=== PATIENT | female | born 1940 | race Caucasian/White ===

== ENCOUNTER 2019-11-23 18:53 | Inpatient (IN) | payer MEDICARE, OTHER ==
[~2019-11-23] VITALS: Ht 152.4 cm; Wt 119.9 kg
[2019-11-23 19:03] VITALS: BP 142/56
[2019-11-23 19:47] LABS: BASO % 0.8 % (0.0-1.0); EOS # 0.1 10*3/uL (0.0-0.4); EOS % 1.8 % (1.0-4.0); HEMATOCRIT 38.9 % (37.0-47.0); LYMPH # 1.1 10*3/uL (1.3-4.4); LYMPH % 22.8 % (27.0-41.0); MEAN CORPUSCULAR HGB 31.8 pg (27.0-31.0); MEAN CORPUSCULAR HGB CONC 32.1 g/dl (33.0-37.0); MEAN PLATELET VOLUME 12.5 fl (9.6-12.3); MONO # 0.6 10*3/uL (0.1-1.0); MONO % 11.9 % (3.0-9.0); NEUT % 62.3 % (47.0-73.0); PLATELET COUNT AUTOMATED 143 10*3/uL (130-400); RED BLOOD COUNT 3.93 10*6/uL (4.10-5.10); RED CELL DISTRI WIDTH 13.4 % (0-14.5); WHITE BLOOD COUNT 4.9 10*3/uL (4.8-10.8)
[2019-11-23 20:00] LABS: ACT PARTIAL THROMBO TIME 23.7 SECONDS (20.0-32.1)
[2019-11-23 20:03] LABS: ALBUMIN 3.2 gm/dl (3.1-4.5); ALKALINE PHOSPHATASE 73 U/L (45-117); BUN 23 mg/dl (7-24); CHLORIDE 107 mmol/L (98-107); CREATININE 1.42 mg/dL (0.55-1.02); LIPASE 183 U/L (73-393); POTASSIUM 2.6 mmol/L (3.5-5.1); SGOT/AST 28 IU/L (3-35); SGPT/ALT 20 U/L (12-78); SODIUM 142 mmol/L (136-145); TOTAL PROTEIN 7.1 gm/dL (6.4-8.2); TROPONIN I < 0.015 ng/ml (<0.045)
--- NOTE | 2019-11-23 20:16 | NUR ---
PTS SON MASON GAVE HIS NUMBER OF
[2019-11-23 20:49] VITALS: BP 156/56
--- NOTE | 2019-11-23 21:30 | NUR ---
PT RESTING IN BED. STATES LAC WAS STARTING TO HURT TO POTASSIUM TITRATED DOWN TO 45
[2019-11-23 21:55] VITALS: BP 140/59
[2019-11-23 22:13] VITALS: BP 123/36
[2019-11-23 22:45] VITALS: BP 105/63
--- NOTE | 2019-11-23 22:45 | NUR ---
Time: 2244 A 79 year old FEMALE admitted to under services of DR. FAITH SAL,DIMA Conn Pt. arrived via stretcher from ER. Chief complaint: WOUND, CELLULITIS, AMBULATORY DYSFUNCTION, HYPOKALEMIA. ERYN MARSHALL
[2019-11-23] MEDS ORDERED: MONTELUKAST SOD10 MG PO (23:04)
[2019-11-23] MEDS ORDERED: SILVADENE,SSD C50 GM T (23:04)
[2019-11-23] MEDS ORDERED: SERTRALINE HYD100 MG PO (23:04)
[2019-11-23] MEDS ORDERED: FEROSUL325 MG PO (23:05)
[2019-11-23] MEDS ORDERED: MELOXICAM7.5 MG PO (23:05)
[2019-11-23] MEDS ORDERED: FUROSEMIDE40 MG PO (23:05)
[2019-11-23] MEDS ORDERED: LIPITOR10 MG PO (23:06)
[2019-11-23] MEDS ORDERED: ASPIRIN ADULT L81 M1 PO (23:08)
[2019-11-23] MEDS ORDERED: PROTONIX40 MG PO (23:08)
[2019-11-23] MEDS ORDERED: VENT7GM INH (23:09)
[2019-11-23] MEDS ORDERED: BREO ELLIPTA 11 EACH INH (23:10)
[2019-11-23] MEDS ORDERED: ALPHAGAN P 10 M10 M1 OPH (23:11)
[2019-11-23] MEDS ORDERED: MESALAMINE1.2 GM PO (23:11)
[2019-11-23] MEDS ORDERED: ZONISAMIDE100 MG PO (23:12)
[2019-11-23] MEDS ORDERED: GABAPENTIN100 M2 PO (23:13)
[2019-11-23] MEDS ORDERED: Transderm-Nitr0.2 MG TD (23:14)
[2019-11-23] MEDS ORDERED: DONEPEZIL HYDROC5 M1 PO (23:15)
[2019-11-23] MEDS ORDERED: NORCO 5-325 TA1 EACH PO (23:15)
--- NOTE | 2019-11-23 23:59 | NUR ---
NOTFIIED DR CUEVAS OF COMPLETED MED REC. ORDERS GIVEN TO CONTINUE HOME MEDS, PUT IN A NORMAL DIET, SOCIAL SERVICE CONSULT FOR INTERMEDIATE PLACEMENT. DR CUEVAS ALSO STATED TO HAVE WOUND CARE NURSE LOOK AT WOUND FOR RECCOMENDATIONS.
[2019-11-24] VITALS (7 sets, daily range): BP systolic 105–142; BP diastolic 37–63
--- NOTE | 2019-11-24 01:06 | NUR ---
Patient resting quietly with no c/o discomfort. Respirations easy and regular. Vital signs stable. No overt distress. ERYN MARSHALL
--- NOTE | 2019-11-24 04:27 | NUR ---
FLORENTINMARIELENADESTINY VU [id number] Please refer to the physician's history and physical for past medical history, comorbid conditions, and allergies. Diagnosis: WOUND CELLULITIS AMBULATORY DYSFUNCTION Jorden Score: 13,MODERATE RISK WOUND DESCRIPTIONS: Wound Number: 1 Location of the wound: right anterior mcdonald Type of wound: traumatic Thickness: Full Size: 4.7cm x 3.2cm x 0.6cm Tunneling: none Underminin.6cm from 1 o'clock - 4 o'clock Sinus Tract: none Presence of Exudate: Sanguineous Amount: Moderate Color: Red, Yellow, Brown Odor: None Periwound Skin Appearance: Erythema Wound edges: approximated Pain (associated with wound): tender at time of assessment How does patient state this happened? pt stated she fell out of the walk in shower 1 month ago Surface the patient is resting on: Position Pro SKIN PREVENTION RECOMMENDATION: 1. Pressure redistribution support surface as appropriate 2. Elevate heels 3. Remove boots/TEDS every shift and reapply 4. Head of bed 30 degrees as tolerated 5. Assess nutrition and hydration 6. Manage moisture 7. Avoid the use of containment devices while in bed 8. Use absorptive products on surfaces limit layers of linens on bed 9. Turn and reposition every 1-2 hours in bed and every 1 hour in chair as tolerated 10. Weight shifts every 15 minutes while up in chair 11. Offloading with pillows or device to keep heels elevated off bed 12. Monitor skin at least every shift 13. Inspect under medical devices twice a day WOUND TREATMENT RECOMMENDATIONS: Venous and arterial studies to ble's due to non-healing wound Wound culture to right anterior mcdonald Consult podiatry for possible debridement if studies allow Full thickness guidelines: Cleanse right anterior mcdonald with nss and apply sureprep around the wound therahoney to wound bed and cover with dsd daily and prn for soiling Heel raiser pro boots to bilateral feet while in bed
--- NOTE | 2019-11-24 05:41 | NUR ---
NOTIFIED DR NGUYEN OF CONSULT.
--- NOTE | 2019-11-24 07:10 | NUR ---
PATIENT'S HOME MED ZONISAMIDE CONTINUED. SPOKE WITH PHARMACY, IT IS A NON-FORMULARY MED AND THEY STATED SHE MAY HAVE TO HAVE IT BROUGHT IN FROM HOME. PASSED ALONG TO DAYSHIFT NURSE OLI Tao
--- NOTE | 2019-11-24 07:19 | NUR ---
SPOKE WITH DR CUEVAS REGARDING WOUND CARE RECOMMENDATIONS. HE STATED TO CONSULT PODIATRY SO THEY CAN SEE THE PATIENT. DR NGUYEN NOTIFIED OF CONSULT AND WOUND. HE STATED THEY WOULD BE IN TO SEE THE PATIENT.
--- NOTE | 2019-11-24 09:11 | NUR ---
DR CUEVAS AND DR MELO HERE TO SEE PT
--- NOTE | 2019-11-24 09:40 | NUR ---
SPOKE WITH PT SON MASON REGARDING PT GOING TO SURGERY TODAY. SURGERY QUESTIONAIRE COMPLETED BY SON VIA PHONE
--- NOTE | 2019-11-24 10:25 | NUR ---
POTASSIUM 2.6, AWAITING LAB DRAW OF STAT 2.6 WOUND PHOTOGRAPHED AND MEASURED PRE OP
--- NOTE | 2019-11-24 10:43 | NUR ---
WAITING ON POTASSIUM LAB RESULT
--- NOTE | 2019-11-24 12:09 | NUR ---
PT REAMINS IN SURGERY
--- NOTE | 2019-11-24 13:10 | NUR ---
PHYSICAL THERAPY Screen and eval received will follow thank you Rochelle Andrew PT
--- NOTE | 2019-11-24 13:48 | NUR ---
APIARIST-S in to talk to patient. Patient states lives at home with son and zsthmiby-em-spe. There are 0 steps in the home. Physician: Dr Pratt Pharmacy: [facility] Home health services: [facility] Patient's level of ADLs: MODERATE ASSIST Patient has working utilities: yes DME: walker and cane Follow-up physician's appointment after d/c: yes Does patient want to access PORTAL?: no Discharge plan Patient resides with her son and pyhvnnkj-dq-oup Kennedy and Radha Colbertgrazynarichard who are also pt's DPOAHC. Pt has resided with them since 10/07 and has been ambulatory with minimal assist for ADLs until a fall on 11/02/19. Pt has hospice services at home through [facility]. Pt currently has [place] health insurances but pt's family is trying to get this discontinued so that pt can apply for [place] Medicaid. Per pt's family to only SNF that they will consider for pt is [facility]. Discussed insurance as being the lonny for SNF placement in [place]. Pt's family is also prepared for pt to return home if unable to discharge to [facility]. . SAVITA ABAD
--- NOTE | 2019-11-24 13:50 | NUR ---
PHYSICAL THERAPY Orders received for evaluation and chart reviewed. Pt just had surgery of RLE with I&D of leg down to level of fascia with wound vac placement early this afternoon, spoke with nsg will follow in the AM for full assessment. Rochelle Andrew PT
--- NOTE | 2019-11-24 19:03 | NUR ---
dr geronimo answering service notified of consult
--- NOTE | 2019-11-24 21:06 | NUR ---
SPOKE WITH PATIENT'S SON WHO IS THE POA. HE STATED THE PATIENT IS A DNR-COMFORT CARE. HE STATED HE WOULD BRING IN THE DNR-CC PAPERWORK FOR US.
[2019-11-25] VITALS: BP 134/66
--- NOTE | 2019-11-25 00:25 | NUR ---
NORCO GIVEN PER PATIENT REQUEST FOR COMPLAINTS OF RIGHT HIP RATED 8/10 WILL ASSESS EFFECTIVENESS.
[2019-11-25 00:26] VITALS: BP 110/66
--- NOTE | 2019-11-25 01:20 | NUR ---
BRANDI HARLEY PER PATIENT. WILL CONTINUE TO MONITOR.
--- NOTE | 2019-11-25 03:43 | NUR ---
24 HR chart check completed.
[2019-11-25] MEDS ORDERED: ALPHAGAN P 15 M15 M1 OPH (03:47)
--- NOTE | 2019-11-25 04:15 | NUR ---
PATIENT'S WOUND VAC IN PLACE AND RUNNING APPROPRIATELY. 200, CONTINUOUS, LOW. NO PROBLEMS NOTED. 25 ML OUTPUT STILL. WILL CONTINUE TO MONITOR.
[2019-11-25 06:45] LABS: BASO # 0.1 10*3/uL (0.0-0.1); EOS # 0.2 10*3/uL (0.0-0.4); EOS % 2.9 % (1.0-4.0); HEMATOCRIT 36.9 % (37.0-47.0); LYMPH # 1.2 10*3/uL (1.3-4.4); MEAN CELL VOLUME 99.2 fl (81.0-99.0); MEAN CORPUSCULAR HGB 31.7 pg (27.0-31.0); MONO # 0.6 10*3/uL (0.1-1.0); MONO % 10.5 % (3.0-9.0); NEUT # 3.3 10*3/uL (2.3-7.9); NEUT % 63.4 % (47.0-73.0); PLATELET COUNT AUTOMATED 121 10*3/uL (130-400); RED BLOOD COUNT 3.72 10*6/uL (4.10-5.10); RED CELL DISTRI WIDTH 13.3 % (0-14.5); WHITE BLOOD COUNT 5.2 10*3/uL (4.8-10.8)
[2019-11-25 06:56] LABS: BUN 14 mg/dl (7-24); CHLORIDE 113 mmol/L (98-107); CREATININE 0.94 mg/dL (0.55-1.02); POTASSIUM 3.3 mmol/L (3.5-5.1); SODIUM 145 mmol/L (136-145)
--- NOTE | 2019-11-25 07:30 | NUR ---
PT RESTING IN BED. VOICES NO CONCERNS AT THIS TIME. RESPS EASY AND NON LABORED. NO S/S OF DISTRESS NOTED.VSS. WHITE BOARD UPDATED. WOUND VAC INTACT @ 200 LOW CONT WITH MINIMAL DRAINAGE. PT ABLE TO WIGGLE TOES AND IS WARM TO THE TOUCH. CALL LIGHT WITHIN REACH. BED ALARM ON.
[2019-11-25 08:00] VITALS: BP 124/50
--- NOTE | 2019-11-25 08:50 | NUR ---
Phoned pt's pcodixum-ze-qjo Radha and informed her that pt has Medicare and that pt's [place] MCR has been discontinued. Confirmed with Radha that a referral gerri be made to [facility].
--- NOTE | 2019-11-25 09:14 | NUR ---
Dr. Rebollar notified of wound VAC clarification needed with location and cleansing agent.
--- NOTE | 2019-11-25 10:09 | NUR ---
PT C/O 10/28 ACHING RIGHT LEG PAIN R/T SURGERY. MEDICATED PER ORDER. WILL MONITOR FOR RELEIF. VOICES NO OTHER CONCERNS AT THIS TIME. RESTING IN BED. RESPS EASY AND NON LABORED. CALL LIGHT WITHIN REACH.
--- NOTE | 2019-11-25 10:32 | NUR ---
Nutritional Support Services Note: Ht.5' Wt.265# IBW 90-110. Dx of cellulitis, ambulatory dysfunction, Alzheimers, dementia. Pt lives at home with family. Under Hospice Care. Staff to conitnue to encourage 100% of po intake. Regular diet as ordered. No other nutrition intervention needed at this time. Will follow as needed. Maria C Whitley Rdn Ld
--- NOTE | 2019-11-25 10:55 | NUR ---
Notified Lilly at [facility] that referral will be faxed as soon as all assessments are available.
--- NOTE | 2019-11-25 11:09 | NUR ---
NORCO EFFECTIVE PER PT
[2019-11-25 12:00] VITALS: BP 146/55
--- NOTE | 2019-11-25 13:15 | NUR ---
Physical Therapy evaluation completed on the fourth floor with full evaluation to follow. Recommend physical therapy per plan of care and SNF upon discharge. Thank you for this referral. Rochelle Andrew PT
--- NOTE | 2019-11-25 14:14 | NUR ---
PT C/O 5/10 ACHING FOOT PAIN R/T SURGERY. MEDICATED PER ORDER. WILL MONITOR FOR RELIEF. VOICES NO OTHER CONCERNS AT THIS TIME. CALL LIGHT WITHIN REACH
--- NOTE | 2019-11-25 15:14 | NUR ---
NORCO EFFECTIVE PER PT
--- NOTE | 2019-11-25 15:18 | NUR ---
Referral faxed to Lilly at [facility]. Submitted 30 Day Exempt through [facility].
--- NOTE | 2019-11-25 15:54 | NUR ---
PHYSICAL THERAPY Pt seen at the bedside still up in recliner chair starting to slide out due to c/o LBP. Pt "ready to get back in bed" STS from recliner chair Min assist x 2. Chair to Bed tranfers Amb 2-3 ft w FWW RLE WBAT and Min assist x 2 w verbal/tactile cues for safety/sequence. Sit to Supine Max x 2. Pt with short shuffling steps mild antalgic gait RLE pain 5/10. Positioned for comfort supine, LLE SCD and BLE off load boots in place call severino in reach and bed alarm engaged. Wound vac intact RLE no issues t/o session. Tolerated activity well with good participation. Nsg updated. Cont to follow per POC and cont to recomend SNF at discharge. Rochelle Andrew PT
[2019-11-25 16:00] VITALS: BP 103/44
--- NOTE | 2019-11-25 18:00 | NUR ---
PTS SON UPDATED ON PLAN OF CARE AND QUESTIONS ANSWERED. SON UPSET THAT OUR PHARMACY CAN NOT SUPPLY PTS SEIZURE MEDICATION. EXPLAINED THAT IT IS A NON FORMULARY MEDICATION THAT WE DO NOT HAVE HERE. SON STATES "ITS RIDICULOUS, BUT WHATEVER ILL BRING IT DOWN". INSTRUCTED ON WHERE AND HOW TO DROP OFF MEDICATION.
--- NOTE | 2019-11-25 18:29 | NUR ---
Patient resting quietly with no c/o discomfort. Respirations easy and regular. Vital signs stable. No overt distress. HISSOM,JUSTIN
[2019-11-25 20:00] VITALS: BP 122/53
--- NOTE | 2019-11-25 20:22 | NUR ---
WENT IN TO CHECK ON PATIENT. IV WAS PULLED OUT, NOT BY PATIENT BUT ON ACCIDENT. PATIENT WAS UNAWARE IT WAS OUT. WILL RESTART IV.
--- NOTE | 2019-11-25 20:30 | NUR ---
PATIENT'S FAMILY BROUGHT IN ZONISAMIDE. DR CUEVAS HAD ORDERED IT TO BE CONTINUED, HOWEVER IT WAS A NONFORMULARY MED AND PHARMACY SAID THEY COULD NOT SUBSTITUTE IT SO PATIENT'S SON DROPPED IT OFF TODAY. SENT DOWN TO PHARMACY TO BE LABELED.
--- NOTE | 2019-11-25 21:43 | NUR ---
PATIENT UP TO BEDSIDE COMMODE WITH 2 ASSIST. SHE DID WELL. VITAL SIGNS STABLE. REPOSITIONED BACK IN BED. WOUND VAC IN PLACE AND RUNNING AT ORDERED SETTINGS. SCD'S ON LEFT LEG. HEEL PROTECTORS ON BOTH FEET. CALL LIGHT WITHIN REACH. WILL CONTINUE TO MONITOR.
--- NOTE | 2019-11-25 22:20 | NUR ---
PATIENT'S FAMILY CALLED FOR AN UPDATE. NO FURTHER QUESTIONS.
[2019-11-26] VITALS: BP 117/48
--- NOTE | 2019-11-26 04:52 | NUR ---
24 HR chart check completed.
--- NOTE | 2019-11-26 07:30 | NUR ---
PT RESTING IN BED. VOICES NO CONCERNS AT THIS TIME. RESPS EASY AND NON LABORED. NO S/S OF DISTRESS NOTED. VSS. WHITE BOARD UPDATED. CALL LIGHT WITHIN REACH. BED ALARM ON. WOUND VAC INTACT @ 200 LOW CONT. TOTAL OUTPUT OF 50ML NOTED. PT TOES PINK AND WARM AND SHE IS ABLE TO WIGGLE THEM
[2019-11-26 08:00] VITALS: BP 109/69
--- NOTE | 2019-11-26 08:00 | NUR ---
PT ASSISTED TO BSC AND THEN TO CHAIR TO EAT BREAKFAST X2 ASSIST WITH A WALKER
--- NOTE | 2019-11-26 10:09 | NUR ---
FAMILY CALLED-PASSWORD PROVIDED. UPDATED ON PLAN OF CARE AND ALL QUESTIONS ANSWERED.
--- NOTE | 2019-11-26 10:24 | NUR ---
Shift chart check completed.
--- NOTE | 2019-11-26 10:25 | NUR ---
PHYSICAL THERAPY Patient seen this am 1;1 for therapy visit and was sitting up in bedside chair upon therapist arrival. Patient identified by name / and presented with R LE wound vac. Patient voices 8/10 R LE pain at rest and was pleasant this morning performing seated B LE therex, all planes, open chain, AROM, x 10 reps each. Patient also completed several sit to stand transfers from low chair surface, MIN A, tolerating approx 90 seconds static stand first trial, then 60 seconds during second trial, with use of wh walker standing support, SBA x 1. Patient reported increased c/o of R hip pain 10/10 following standing ex and returned to bedside chair. Patient remained in chair with call light, tray table, telephone and body alarm for safety. Will continue per POC as tolerated, total treatment time 16 minutes. Narinder Mcgarry, GOLD TOOLER
[2019-11-26 11:09] LABS: ACID FAST SPEC PROCESSING Tissue Grinding (.)
[2019-11-26 12:00] VITALS: BP 116/51
--- NOTE | 2019-11-26 15:24 | NUR ---
Continuing to work with [facility] for pt acceptance. Per Ashly of [facility], pt's insurance is still showing as [place] not Medicare. Ashly is working with pt's family to resolve this.
--- NOTE | 2019-11-26 15:27 | NUR ---
PHYSICAL THERAPY CO-SIGN I approve of the Physical Therapy notes written above. Rochelle Andrew PT
[2019-11-26 16:00] VITALS: BP 116/56
[2019-11-26 20:00] VITALS: BP 134/41
--- NOTE | 2019-11-26 21:00 | NUR ---
PM MEDICATIONS TAKEN WITHOUT INCIDENT. HEEL PROTECTORS APPLIED PER ORDER. BED IN LOWEST, LOCKED POSITION, CALL LIGHT IN REACH. BED ALARMED.
[2019-11-27] VITALS: BP 140/57
--- NOTE | 2019-11-27 05:24 | NUR ---
COBYCO PROVIDED PER C/O PAIN TO FEET. WILL MONITOR.
[2019-11-27 08:00] VITALS: BP 146/64
--- NOTE | 2019-11-27 09:00 | NUR ---
RESTING IN BED. DENIES C/O AT THIS TIME. WOUND VAC IN PLACE TO RT FOOT. PODIATRY TO BE IN WITHIN THE HOUR TO REDRESS FOOT. WILL CONTNUE TO MONITOR PT.
[2019-11-27 16:00] VITALS: BP 127/51
--- NOTE | 2019-11-27 17:18 | NUR ---
NUEROTIN 100MG GIVEN AT THIS TIME. ON A WOW AND GOT LOCKED IN IT.
[2019-11-27 20:00] VITALS: BP 123/58
[2019-11-28 06:46] LABS: BUN 18 mg/dl (7-24); CREATININE 1.07 mg/dL (0.55-1.02)
[2019-11-28 08:00] VITALS: BP 128/59
--- NOTE | 2019-11-28 08:48 | NUR ---
MEDICATED WITH PRNM NORCO PER ORDER AND REQUEST FOR C/O LEG PAIN RATED AT 8 OUT OF 10.
--- NOTE | 2019-11-28 11:30 | NUR ---
PODIATRY HAVE ROUNDED AND WRAPPED R LEG, TUBI M1A1 TANK CREWMAN TO LEFT LEG, HEEL PROTECTORS BILATERALLY.
[2019-11-28 16:00] VITALS: BP 116/51
--- NOTE | 2019-11-28 20:00 | NUR ---
AWAKE & ALERT RESTING IN BED WITH HOB SLIGHTLY ELEVATED. HEP LOCK INTACT TO LEFT ARM; SITE ASYMPTOMATIC. LUNGS CLEAR; SLIGHTLY DIMINISHED WITH NO COUGH NOTED. WOUND VAC INTACT. PT. VOICES NO C/O AT THIS TIME. CALL LIGHT WITHIN REACH.
--- NOTE | 2019-11-28 22:30 | NUR ---
TOOK MEDICATION WITHOUT DIFFICULTY. PT. VOICES NO C/O AT THIS TIME. CALL LIGHT WITHIN REACH.
[2019-11-29] VITALS: BP 118/53
--- NOTE | 2019-11-29 02:31 | NUR ---
Patient resting quietly with no c/o discomfort. Respirations easy and regular. Vital signs stable. No overt distress. ERYN MARSHALL
--- NOTE | 2019-11-29 07:50 | NUR ---
PHYSICAL THERAPY Patient was seen this am 1:1 for therapy visit and was resting supine in bed upon therapist arrival. Patients Nurse was present this morning as patient identified by name / . Patient presented with R LE wound vac and reports 3/10 pain around wound port. Patient transfers supine to sit EOB with MOD A, tolerating static EOB sit x several minutes to fully awaken. Patient instructed / performed seated B LE therex, all planes, 2 x 10 reps each to increase LE strength, then completed several sit to stand transfers, MIN A, use of wh walker standing support and requried v/c for proper hand placement to improve transfer safety. Patient also completed SPT to BSC, MIN A and ambulated 5'x 1, wh walker, MIN A to w/c for transport down for Ultrasound. Patient remained in w/c under [facility] staff Supervision and will continue per POC as tolerated, total treatment time 23 minutes. Narinder Mcgarry, DOCUMENT REVIEWER
[2019-11-29 08:00] VITALS: BP 131/79
--- NOTE | 2019-11-29 08:30 | NUR ---
ASSISTED TO BSC. BANDAGE REMOVED PER PODIATRY ORDER TO GO TO RADIOLOGY.
--- NOTE | 2019-11-29 09:14 | NUR ---
PATIENT IS BACK FROM TEST AND IS SITTING IN CHAIR.
--- NOTE | 2019-11-29 09:40 | NUR ---
Spoke with pt's tvlihtqt-[id number]-usa Radha who stated that she phoned [employer] and was told that pt is still current with that insurance. She was advised to enroll pt in a Medicare Part D program, which will disenroll pt from [place]. Discussed with Radha other discharge plan should pt be unable to discharge to [facility]. Radha stated that she does not want another NF and that pt would return home with hospice care. Explained to Radha that this editorial writer will get an update this AM about status of pt's wound vac and IV antibiotics in order to assist with discharge decision of SNF, home health, or hospice.
--- NOTE | 2019-11-29 10:04 | NUR ---
CALLED DR. CUEVAS OFFICE TO NOTIFY OF US RESULTS. DR. DONOVAN HERE AND AWARE.
--- NOTE | 2019-11-29 11:10 | NUR ---
Spoke to Dr. Pratt regarding whether patient would need IV antibiotics and a wound vac at home or home with hospice. She is not able to go to [facility] as she has a [place] Medicaid insurance and no [place] facility is going to be able to take her at this time. [id number]-nvb only wants [facility]. Spoke to Juan Pablo at [facility] regarding whether they would be able to provide the IV antibiotics and a wound vac. Awaiting return call from [facility]. monitor worker/media planner following.
--- NOTE | 2019-11-29 12:17 | NUR ---
DR. BOLES HAS ROUNDED. NEW ORDER FOR ELIQUIS GIVEN EARLIER BY DR. CUEVAS.
--- NOTE | 2019-11-29 13:21 | NUR ---
PATIENT'S DRESSING IS INTACT TO R LEG AGAIN PER PODAITRY.
--- NOTE | 2019-11-29 15:17 | NUR ---
Message left on sonAlfredo, answering machine regarding discharge planning. Awaiting return call. Spoke to Dr. Pratt who states family is not able to care for patient at home with the IV antibiotics and wound vac. [facility] states they are not in network with her [place] insurance. Awaiting return call.
[2019-11-29 16:00] VITALS: BP 124/47
--- NOTE | 2019-11-29 17:20 | NUR ---
DURAGESIC PATCH ON L ARM.
[2019-11-29 20:00] VITALS: BP 128/58
--- NOTE | 2019-11-29 22:00 | NUR ---
PATIENT VOICED NO COMPLAINTS. NO OVERT DISTRESS NOTED. WOUND VAC INTACT, NO ADDITIONAL DRAINAGE NOTED AT THIS TIME. CALL LIGHT WITHIN REACH
[2019-11-30] VITALS: BP 134/55
--- NOTE | 2019-11-30 03:03 | NUR ---
PATIENT RESTING IN BED WITH NO S/S OF DISTRESS. BED IN LOWEST POSITION, BED ALARM ON, CALL LIGHT IN REACH
--- NOTE | 2019-11-30 06:26 | NUR ---
DESTINY TRUONG [id number] Please refer to the physician's history and physical for past medical history, comorbid conditions, and allergies. Diagnosis: WOUND CELLULITIS AMBULATORY DYSFUNCTION Jorden Score: 13,MODERATE RISK WOUND DESCRIPTIONS: Wound Number: 1 Wound Vac intact to right lower extremity 200mmHg continous low intensity. No strikethrough drainage noted at time of assessment. Wound Number: 2 Location of the wound: left abdominal fold Type of wound: fungal Thickness: Partial Size: 1.2cm x 7.5cm x 0.1cm Tunneling: none Undermining: none Sinus Tract: none Presence of Exudate: Serosanguineous Amount: Light Color: Red Odor: None Periwound Skin Appearance: Normal Wound edges: approximated Pain (associated with wound): none at time of assessment How does patient state this happened? pt unable to state how this happened Surface the patient is resting on: Isoflex SKIN PREVENTION RECOMMENDATION: 1. Pressure redistribution support surface as appropriate 2. Elevate heels 3. Remove boots/TEDS every shift and reapply 4. Head of bed 30 degrees as tolerated 5. Assess nutrition and hydration 6. Manage moisture 7. Avoid the use of containment devices while in bed 8. Use absorptive products on surfaces limit layers of linens on bed 9. Turn and reposition every 1-2 hours in bed and every 1 hour in chair as tolerated 10. Weight shifts every 15 minutes while up in chair 11. Offloading with pillows or device to keep heels elevated off bed 12. Monitor skin at least every shift 13. Inspect under medical devices twice a day WOUND TREATMENT RECOMMENDATIONS: Cleanse left abdominal fold with soap and water pat area dry then apply nystatin powder every 8 hours.
[2019-11-30 08:00] VITALS: BP 124/94
--- NOTE | 2019-11-30 08:35 | NUR ---
PHYSICAL THERAPY Patient seen this am 1;1 for therapy visit and was supine in bed upon therapist arrival. Patient identified by name / and joined by patient attendant who was present during BEAMER OPERATOR session. Patient presented with R LE wound vac and reports 7/10 R LE pain that seems to come / go throughout the day. Patient transfers supine to sit EOB with MIN A and sit to stand MIN A, prior to ambulating 15'x 1, wh walker, CGA, around bed to bedside chair. Patient demonstrates very slow, cautious gait pattern, decreased stride / heel strike and reports no change in pain c/o. Following brief seated rest break secondary to increased fatigue, patient performed seated B LE therex, all planes, x 15 reps each without c/o to increase LE strength. Patient is still WBAT on R LE and remained in bedside chair with call light, tray table, telephone and body alarm for safety. Will continue per POC as tolerated, total treatment time 23 minutes. Narinder Mcgarry, BEAMER OPERATOR
--- NOTE | 2019-11-30 08:38 | NUR ---
Spoke to ghmrcylp-[id number]-sje, Radha, regarding discharge planning. She states patient has Medicare A&B and the [place] plan is for drug coverage which will start December 19. She is calling this morning to see about getting her enrolled in [place] Medicaid. After she speaks to [place] Medicaid she will return call to . Discussed [facility] in [place] as Radha stated she didn't want the patient in any other [place] facilities and as [facility] due to insurance coverage. washtub worker, Dr. Soriano, and Dr. Pratt notified.
--- NOTE | 2019-11-30 08:53 | NUR ---
CATHLEEN faxed new patient referral to [facility] in [place] on this date. Pending acceptance.
--- NOTE | 2019-11-30 09:11 | NUR ---
Riley Denied client due to not having had a Covid Test completed.
--- NOTE | 2019-11-30 11:47 | NUR ---
Spoke to Dr. Pratt regarding [facility] requiring a COVID test prior to accepting patient. New orders received.
[2019-11-30 12:00] VITALS: BP 109/49
--- NOTE | 2019-11-30 15:00 | NUR ---
CATHLEEN faxed new patient referal to [facility] on this date. Pending acceptance.
[2019-11-30 16:00] VITALS: BP 135/56
[2019-11-30 20:00] VITALS: BP 128/61
--- NOTE | 2019-11-30 20:20 | NUR ---
PATIENT RESTING IN BED WITH NO NEEDS MADE. BED IN LOWEST POSITION, CALL LIGHT IN REACH
[2019-12-01] VITALS: BP 133/59
--- NOTE | 2019-12-01 04:16 | NUR ---
PATIENT RESTING IN BED WITH NO S/S OF DISTRESS. BED IN LOWEST POSITION, CALL LIGHT IN REACH
--- NOTE | 2019-12-01 07:46 | NUR ---
PHYSICAL THERAPY Screen received for Physical Therapy pt has already been evaluated and is on caseload thank you. Rochelle Andrew PT
--- NOTE | 2019-12-01 07:55 | NUR ---
CATHLEEN recieved word from [facility] that they are not in network with [facility] and patients primary insurance is through [facility]. They cannot take patient for placement.
[2019-12-01 08:00] VITALS: BP 128/50
--- NOTE | 2019-12-01 08:15 | NUR ---
PHYSICAL THERAPY Patient seen this am 1:1 for therapy visit and was "slouched" supine in bed upon therapist arrival. Patient identified by name / as patient attendant was present requesting help with repositioning patient. However, per therapist request, agreed to transfer to bedside chair as breakfast tray arrived. Patient presented with R LE wound vac and transfers supine to sit EOB with MOD A x 1. Patient able to complete seated B LE therex, all planes, x 10 reps each prior to performing sit to stand transfer, MIN A x 1 with use of wh walker standing support. Patient completed SPT to bedside chair, CGA, requiring v/c for safe step sequence and proper hand placement prior to sitting down. Patient remained in bedside chair with call light, tray table, telephone and body alarm for safety. Will continue per POC as tolerated, total treatment time 15 minutes. Narinder Mcgarry, OFFICE HELPER
--- NOTE | 2019-12-01 08:35 | NUR ---
Spoke to Dr. Soriano regarding discharge planning. She is awaiting Dr. Vega to round but thinks patient may be able to go home on po antibiotics. Spoke to Dr. Rebollar who will make rounds with the attending about 10am to see if the patient needs to be discharged to home with a wound vac. Spoke to Lucy at [facility] regarding if they take [place] insurance and they do not but Lucy will look to see if she can find a company that does and return call.
--- NOTE | 2019-12-01 09:19 | NUR ---
Received call from Lucy at [facility]. They are not able to see patient due to her insurance of [place]. They are not contracted with them. She suggested to call the number of the back of her [place] insurance card to see what home health insurance companies are within her network.
--- NOTE | 2019-12-01 10:45 | NUR ---
Spoke to Surinder at [place] regarding home health companies within the their network. There are 2 [facility] and [facility]. Spoke to Isabel at [facility] and Jazmyn at [facility], they both state they do not come to [place]. Dr. Rebollar notified who states they will place the vac here in the hospital and then patient is to follow at the office. Faxed VAC therapy insurance authorization form to [facility]. Awaiting response.
--- NOTE | 2019-12-01 11:36 | NUR ---
Spoke to nuqdzxhk-[id number], Radha, regarding patient can be discharged on po antibiotics. She is not understanding how from 2 days ago she needed IV antibiotics to now needing po antibiotics. Asked Dr. Soriano to call patient to help answer patient's questions. Explained the patient would have the wound vac placed here at the hospital and would need to follow up at the physician's office. She verbalized an understanding. Asked Dr. Rebollar how often the patient would need to follow up at the physician's office, waiting for a response. Azzdsifb-[id number] is concerned that her who was working night turn is now working day light and he is the one that gets her in and out of the house. She states she doesn't think she would be able to get her to her doctor appointments as she doesn't drive and doesn't think she will be able to get her into a car. She states she is willing to private pay for a SNF. Discussed it costing approximately $3000 for 3 weeks and she states she is not able to afford that option either. appointments as she doesn't drive and is not sure she can get
--- NOTE | 2019-12-01 11:56 | NUR ---
Dr. Soriano spoke to patient regarding antibiotics. Patient has concerns regarding the wound vac. Dr. Soriano will reach out to podiatry to have them talk to family.
[2019-12-01 16:00] VITALS: BP 109/51
[2019-12-02] VITALS: BP 141/81
--- NOTE | 2019-12-02 07:28 | NUR ---
Notified Dr. Rebollar of [id number]'s request to speak to podiatry regarding office visits and how often. Awaiting response.
--- NOTE | 2019-12-02 07:48 | NUR ---
24 HR chart check completed.
[2019-12-02 08:00] VITALS: BP 125/58
--- NOTE | 2019-12-02 08:30 | NUR ---
PT IS CURRENTLY SITTING UP IN THE BED, EATING BREAKFAST. PT HAD NO COMPLAINTS AT THIS TIME AND DENIED ANY PAIN. WOUND VAC WAS C/D/I. IT WAS CONTINUOUSLY RUNNING PER ORDER.
--- NOTE | 2019-12-02 08:57 | NUR ---
Received voicemail from Kai at [facility] regarding where delivery of [facility] wound vac would be. Returned call and left message for wound vac to be delivered to the hospital. Awaiting return call.
--- NOTE | 2019-12-02 09:51 | NUR ---
Discussed discharge planning with Dr. Pratt. Awaiting [facility] wound vac delivery. Patient to be discharged today as long as wound vac is delivered. Discussed antibiotics with Dr. Soriano who states patient will need Keflex for [address] Rebollar who states he spoke to the [id number]-sco yesterday regarding follow-up with podiatry.
[2019-12-02] MEDS ORDERED: KEFLEX 500 MG E2 CAP PO (10:16)
[2019-12-02] MEDS ORDERED: Duragesic 50 M50 MCG T (10:16)
[2019-12-02] MEDS ORDERED: ELIQUIS5 M1 PO (10:16)
--- NOTE | 2019-12-02 13:47 | NUR ---
CALLED PT'S SON MASON AND MASON'S ANSWERED THE PHONE. I NOTIFIED HER THAT SHE WAS COMPLETELY OUT OF HER MEDICATION ZONISAMIDE. I ALSO INFORMED HER THAT WE WERE STILL WAITING ON THE WOUND VAC TO COME. SHE SAID THAT IF IT COMES AND SHE CAN LEAVE SHE WOULD NOT HAVE A RIDE UNTIL AFTER [id number]. SHE ALSO HAD SAID THAT IF THE WOUND VAC DOES NOT COME TONIGHT SHE WOULD RUN UP MORE OF HER MEDICATION. SHE SAID SHE WAS GOING TO BE CALLING THE PATIENT'S PHARMACY AND WORKING ON GETTING THE PERSCRIPTION FILLED.
--- NOTE | 2019-12-02 13:52 | NUR ---
Spoke to RAMIRO at [facility] regarding wound vac status. She states the wound vac is still in a pending status but has been assigned. She states the hospital will receive a call to determine delivery time after all of the documentation has been reviewed.
[2019-12-02 16:00] VITALS: BP 114/50
--- NOTE | 2019-12-02 17:00 | NUR ---
PA'S WERE CLEANING PATIENT UP AND NOTICED A TEAR IN THE INTERGLUTEAL FOLD OF THE PATIENT. NO DRAINAGE WAS PRESENT AND IT WAS NOT PAINFUL FOR THE PATIENT.
--- NOTE | 2019-12-02 18:07 | NUR ---
SPOKE WITH [facility], THEY SAID THEY NO LONGER HAD A MARKETING OPERATIONS INTERN THAT COULD BRING THE WOUND VAC TONIGHT. I TOLD THEM THAT THE PATIENT WAS DISCHARGED AND SHE WAS JUST WAITING ON THE THE WOUND VAC. THEY SAID THERE FIRST MARKETING OPERATIONS INTERN STARTS AT 8AM AND THAT THEY WOULD BE ABLE TO GET IT HERE IN THE MORNING. DR. DONOVAN WAS CALLED AND NOTIFIED.
--- NOTE | 2019-12-02 18:17 | NUR ---
CALLED AND NOTIFIED THE FAMILY THAT THE PATIENTS WOUND VAC WOULD NOT BE ABLE TO ARRIVE AT THE HOSPITAL UNTIL TOMORROW MORNING. PT'S DAUGHTER IN LAW ALSO STATED THAT SHE WAS ABLE TO FILL PT'S PRESCRIPTION AND HER WOULD BRING IN THE MEDICATION.
--- NOTE | 2019-12-02 19:00 | NUR ---
ASSUMED CARE FOR THIS PT AT THIS TIME. PT AWAKE IN BED LOOKING OUT WINDOW. WOUND ON RLE AND FUNCTIONING W/OUT DIFF, SETTINGS 200MMHG LOW CONTNUOUS. PT C/O RLE PAIN. FENTANYL PATCH TO LT SHOULDER INTACT. WILL CONTINUE TO MONITOR. BED IN LOW POSITION W/WHEELS LOCKED AND ALARM ON. CALL LIGHT IN REACH.
[2019-12-03] VITALS: BP 126/47
--- NOTE | 2019-12-03 05:59 | NUR ---
DESTINY TRUONG [id number] Please refer to the physician's history and physical for past medical history, comorbid conditions, and allergies. Diagnosis: WOUND CELLULITIS AMBULATORY DYSFUNCTION Jorden Score: 16,AT RISK WOUND DESCRIPTIONS: Wound Number: 3 Location of the wound: intergluteal fold Type of wound: IAD Thickness: Partial Size: 2.0cm x 0.2cm x 0.1cm Tunneling: none Undermining: none Sinus Tract: none Presence of Exudate: Serous Amount: Light Color: Red Odor: None Periwound Skin Appearance: Normal Wound edges: approximated Pain (associated with wound): none at time of assessment How does patient state this happened? pt unable to state how this happened Surface the patient is resting on: Position Pro SKIN PREVENTION RECOMMENDATION: 1. Pressure redistribution support surface as appropriate 2. Elevate heels 3. Remove boots/TEDS every shift and reapply 4. Head of bed 30 degrees as tolerated 5. Assess nutrition and hydration 6. Manage moisture 7. Avoid the use of containment devices while in bed 8. Use absorptive products on surfaces limit layers of linens on bed 9. Turn and reposition every 1-2 hours in bed and every 1 hour in chair as tolerated 10. Weight shifts every 15 minutes while up in chair 11. Offloading with pillows or device to keep heels elevated off bed 12. Monitor skin at least every shift 13. Inspect under medical devices twice a day WOUND TREATMENT RECOMMENDATIONS: Cleanse intergluteal fold with soap and water and apply calazime every shift and prn for soiling. Wheelchair cushion when oob.
[2019-12-03 08:00] VITALS: BP 128/50
--- NOTE | 2019-12-03 09:19 | NUR ---
PREVIOUS FENTANYL PATCH WASTED WITH LILA VANCE RN.
--- NOTE | 2019-12-03 11:58 | NUR ---
RECEIVED A CALL FROM [facility] THEY ARE OUT FRONT WITH WOUND VAC. WENT DOWN TO PICK IT UP. WOUND VAC IN ROOM. DEDRICK CONNOR SAYS SHE WILL CALL DR DONOVAN AND LET HIM KNOW WOUND VAC HAS ARRIVED.
--- NOTE | 2019-12-03 13:00 | NUR ---
PTS [id number] STATES THAT SHE IS UNBLE TO GET AHOLD OF HER TO HOME SCHOOL COORDINATOR THE PATIENT. HE IS AT WORK AND IS NOT ANSWERING THE PHONE. SHE WILL CALL WITH A TIME WHEN HE CALLS BACK.
--- NOTE | 2019-12-03 13:39 | NUR ---
PHYSICAL THERAPY Screen received pt has already been evaluated and is on caseload thank you Rochelle Andrew PT
--- NOTE | 2019-12-03 15:12 | NUR ---
PTS DAUGHTER IN LAW ONFORMED OF FOLLOW UP APPT WITH [facility] ON Friday AT 10 AM.
--- NOTE | 2019-12-03 15:26 | NUR ---
PHYSICAL THERAPY CO-SIGN I approve of the Physical Therapy notes written above. Rochelle Andrew PT
--- NOTE | 2019-12-03 16:46 | NUR ---
HEPLOCK REMOVED. PT DISCHARGED AT THIS TIME TO HOME VIA WHEELCHAIR. WOUND VAC INTACT. SUPPLIES TAKEN WITH PATIENT TO THE ER. PRESCRIPTIONS AND PACKET WELL HOME MEDS SENT HOME WITH THE PATIENT.
--- NOTE | 2019-12-03 17:00 | NUR ---
THIS NURSE CALLED TO ER TO TROUBLESHOOT BEEPING WOUND VAC. I TURNED THE WOUND VAC TO CONTINOUS VAC AND IT WAS THEN FUNCTIONING PROPERLY. SCREEN LOCKED.
== END 2019-12-03 16:48 | disposition home or self-care (01) | DRG 570 ==
LOC: ED 18:53 → 4E 21:37 → EDHOLD 21:37 → 4E 22:04
PROVIDERS: Nurse Practitioner Family; Podiatrist Foot & Ankle Surgery; ADMIT Internal Medicine
PROC: 0JBQ0ZZ Excision of Right Foot Subcutaneous Tissue and Fascia, Open Approach (ICD-10-PCS; principal; 2019-11-24)
DX: L03.115 Cellulitis of right lower limb (principal); G93.41 Metabolic encephalopathy; F33.0 Major depressive disorder, recurrent, mild; Z68.43 Body mass index [BMI] 50.0-59.9, adult; I82.412 Acute embolism and thrombosis of left femoral vein; S91.001A Unspecified open wound, right ankle, initial encounter; L02.415 Cutaneous abscess of right lower limb; R62.7 Adult failure to thrive; K21.9 Gastro-esophageal reflux disease without esophagitis; E87.6 Hypokalemia; M16.11 Unilateral primary osteoarthritis, right hip; G89.29 Other chronic pain; D50.9 Iron deficiency anemia, unspecified; G30.9 Alzheimer's disease, unspecified; F02.80 Dementia in other diseases classified elsewhere, unspecified severity, without behavioral disturbance, psychotic disturbance, mood disturbance, and anxiety; E66.01 Morbid (severe) obesity due to excess calories; G40.909 Epilepsy, unspecified, not intractable, without status epilepticus; I25.10 Atherosclerotic heart disease of native coronary artery without angina pectoris; I25.2 Old myocardial infarction; K21.0 Gastro-esophageal reflux disease with esophagitis; E78.2 Mixed hyperlipidemia; K52.89 Other specified noninfective gastroenteritis and colitis; J45.40 Moderate persistent asthma, uncomplicated; B95.61 Methicillin susceptible Staphylococcus aureus infection as the cause of diseases classified elsewhere; I73.9 Peripheral vascular disease, unspecified; X58.XXXA Exposure to other specified factors, initial encounter; Y93.89 Activity, other specified; Y92.89 Other specified places as the place of occurrence of the external cause; Y99.8 Other external cause status; Z79.899 Other long term (current) drug therapy; Z79.82 Long term (current) use of aspirin

== ENCOUNTER 2019-12-10 23:35 | Inpatient (IN) | payer OTHER ==
[~2019-12-10] VITALS: Ht 154.9 cm; Wt 118.5 kg
[2019-12-10 03:15] VITALS: BP 120/51
[~2019-12-10 23:35] MED LIST: ALPHAGAN P 10 M10 M1 OPH; ALPHAGAN P 15 M15 M1 OPH; ASPIRIN ADULT L81 M1 PO; BREO ELLIPTA 11 EACH INH; DONEPEZIL HYDROC5 M1 PO; Duragesic 50 M50 MCG T; ELIQUIS5 M1 PO; FEROSUL325 MG PO; FUROSEMIDE40 MG PO; GABAPENTIN100 M2 PO; KEFLEX 500 MG E2 CAP PO; LIPITOR10 MG PO; MELOXICAM7.5 MG PO; MESALAMINE1.2 GM PO; MONTELUKAST SOD10 MG PO; NORCO 5-325 TA1 EACH PO; PROTONIX40 MG PO; SERTRALINE HYD100 MG PO; SILVADENE,SSD C50 GM T; Transderm-Nitr0.2 MG TD; VENT7GM INH; ZONISAMIDE100 MG PO
[2019-12-10 23:52] VITALS: BP 120/48
[2019-12-11 00:02] LABS: BASO # 0.1 10*3/uL (0.0-0.1); BASO % 1.2 % (0.0-1.0); EOS # 0.2 10*3/uL (0.0-0.4); EOS % 3.5 % (1.0-4.0); HEMATOCRIT 35.9 % (37.0-47.0); LYMPH # 1.7 10*3/uL (1.3-4.4); LYMPH % 34.6 % (27.0-41.0); MEAN CELL VOLUME 99.4 fl (81.0-99.0); MEAN CORPUSCULAR HGB 31.9 pg (27.0-31.0); MEAN PLATELET VOLUME 12.1 fl (9.6-12.3); MONO # 0.4 10*3/uL (0.1-1.0); MONO % 8.9 % (3.0-9.0); NEUT # 2.5 10*3/uL (2.3-7.9); NEUT % 51.6 % (47.0-73.0); PLATELET COUNT AUTOMATED 153 10*3/uL (130-400); RED BLOOD COUNT 3.61 10*6/uL (4.10-5.10); RED CELL DISTRI WIDTH 13.4 % (0-14.5); WHITE BLOOD COUNT 4.9 10*3/uL (4.8-10.8)
[2019-12-11 00:20] LABS: ACT PARTIAL THROMBO TIME 26.5 SECONDS (20.0-32.1); INTERNATIONAL NORM RATIO 1.1 (2.0-3.5)
[2019-12-11 00:23] LABS: ALBUMIN 3.2 gm/dl (3.1-4.5); ALKALINE PHOSPHATASE 70 U/L (45-117); BUN 23 mg/dl (7-24); CHLORIDE 107 mmol/L (98-107); POTASSIUM 3.3 mmol/L (3.5-5.1); SGOT/AST 25 IU/L (3-35); SGPT/ALT 16 U/L (12-78); SODIUM 142 mmol/L (136-145); TOTAL PROTEIN 6.6 gm/dL (6.4-8.2)
[2019-12-11 00:30] LABS: TROPONIN I < 0.015 ng/ml (<0.045)
[2019-12-11 00:41] VITALS: BP 116/49
--- NOTE | 2019-12-11 02:18 | NUR ---
PATIENT REFUSES PHOTOS FOR WOUNDS
[2019-12-11 02:19] VITALS: BP 104/57
--- NOTE | 2019-12-11 02:20 | NUR ---
SPOKE WITH SON WHO STATES HER WOUND VAC IS NOT TO BE REMOVED UNLESS ITS BY THE WOUND DOCTOR.
--- NOTE | 2019-12-11 03:15 | NUR ---
A 79, admitted to , under the services of CHU Andersen MD with a diagnosis of JESSICA; CHF; STASIS OF RIGHT LOWER EXTREMITY. Chief complaint is C/O SYNCOPE; SOB AT HOME PER PT.. Patient arrived via stretcher from ER. Monitor applied. Initial assessment completed. Vital signs taken and recorded. CHU ANDERSEN MD notified of admission to the unit. Orders received. See assessment for past medical history, medications and allergies. Patient and/or family oriented to unit. [facility] visitation policy reviewed. Clothing/patient valuable form completed. AG TUTTLE
[2019-12-11 08:00] VITALS: BP 131/49
--- NOTE | 2019-12-11 09:02 | NUR ---
AM MEDS TAKEN WITH EASE. PT ALERT AND ORIENTED WITH PERIODS OF CONFUSION. RESPIRATIONS EASY AND UNLABORED ON 1L NC. DRESSING TO RIGHT LOWER EXTREMITY IN TACT. WILL CONTINUE TO MONITOR. HOB ELEVATED. SAFETY MEASURES IN PLACE. CALL LIGHT IN REACH.
--- NOTE | 2019-12-11 10:41 | NUR ---
DR DONOVAN AT BEDSIDE, APPLYING WOUND VAC TO RLE.
--- NOTE | 2019-12-11 11:00 | NUR ---
DR BRIZUELA CALLS AND STATES THAT PATIENT TAKES ZONISAMIDE 100 MG TID FOR SEIZURE DISORDER. OUR PHARMACY DOES NOT CARRY MEDICATION. PHYSICIAN STATES THAT EITHER OUR PHARMACY CAN DO A PHARMACOLOGIC INTERCHANGE OR FAMILY CAN BRING MEDS FROM HOME TO BE USED. PHARMACY NOTIFIED AND STATES THAT THEY ARE UNABLE TO REPLACE MEDICATION. FAMILY NOTIFIED AND STATES THAT THEY WILL BRING MEDICATION IN.
[2019-12-11 12:00] VITALS: BP 126/42
--- NOTE | 2019-12-11 14:00 | NUR ---
FAMILY BRINGS IN HOME MEDICATION FOR USE. PHARMACY LABELS FOR USE. MEDICATION IN [place].
[2019-12-11 16:00] VITALS: BP 106/66
--- NOTE | 2019-12-11 16:00 | NUR ---
PT SITTING UP IN BED, EATING DINNER. NO S/S OF DISTRESS NOTED. WOUND VAC IN PLACE TO RIGHT LOWER EXTREMITY. RESPIRATIONS EASY AND UNLABORED ON 2L NC. WILL CONTINUE TO MONITOR. CALL LIGHT IN REACH.
[2019-12-11 19:59] VITALS: BP 123/49
--- NOTE | 2019-12-11 20:10 | NUR ---
SITTING UP IN BED WATCHING T.V. ATE 100% OF DINNER. VOICES NO C/O AT THIS TIME. BED ALARM INTACT; CALL LIGHT WITHIN REACH.
--- NOTE | 2019-12-11 22:00 | NUR ---
TOOK PO MEDICATION WITHOUT DIFFICULTY. VOICES NO C/O AT THIS TIME. 02 REMAINS INTACT. WOUND VAC INTACT TO RIGHT LOWER LEG. BED ALARM ON; CALL LIGHT WITHIN REACH.
--- NOTE | 2019-12-12 | NUR ---
RESTING IN BED WITH EYES CLOSED. 02 REMAINS INTACT. RESPIRATIONS EASY & UNLABORED. BED ALARM ON; CALL LIGHT WITHIN REACH.
[2019-12-12 00:27] VITALS: BP 125/52
[2019-12-12 06:39] LABS: BASO # 0.1 10*3/uL (0.0-0.1); BASO % 1.2 % (0.0-1.0); EOS # 0.3 10*3/uL (0.0-0.4); EOS % 6.1 % (1.0-4.0); HEMATOCRIT 35.3 % (37.0-47.0); LYMPH % 19.3 % (27.0-41.0); MEAN CELL VOLUME 101.1 fl (81.0-99.0); MEAN CORPUSCULAR HGB 31.8 pg (27.0-31.0); MEAN CORPUSCULAR HGB CONC 31.4 g/dl (33.0-37.0); MEAN PLATELET VOLUME 12.3 fl (9.6-12.3); MONO # 0.5 10*3/uL (0.1-1.0); MONO % 9.1 % (3.0-9.0); NEUT # 3.2 10*3/uL (2.3-7.9); NEUT % 64.1 % (47.0-73.0); PLATELET COUNT AUTOMATED 141 10*3/uL (130-400); RED BLOOD COUNT 3.49 10*6/uL (4.10-5.10); RED CELL DISTRI WIDTH 13.5 % (0-14.5); WHITE BLOOD COUNT 4.9 10*3/uL (4.8-10.8)
[2019-12-12 06:52] LABS: CREATININE 1.3 mg/dL (0.55-1.02); POTASSIUM 3.1 mmol/L (3.5-5.1)
--- NOTE | 2019-12-12 07:30 | NUR ---
TOOK OVER CARE OF PT. PT RESTING IN BED. EYES CLOSED. RESPIRATIONS EASY AND UNLABORED ON 1L NC. HOB ELEVATED. WOUND VAC IN PLACE. SAFETY MEASUARES IN PLACE. CALL LIGHT IN REACH.
[2019-12-12 08:00] VITALS: BP 147/56
[2019-12-12 12:00] VITALS: BP 122/43
--- NOTE | 2019-12-12 15:48 | NUR ---
PT ON R/A SAT 97%, RN AWARE.
[2019-12-12 16:00] VITALS: BP 138/53
--- NOTE | 2019-12-12 16:00 | NUR ---
PT RESTING IN BED. ALERT AND ORIENTED AT THIS TIME. NO COMPLAINTS VOICED. RESPIRATIONS EASY AND UNLABORED.NO DISTRESS NOTED. CALL LIGHT IN REACH.
[2019-12-12 19:55] VITALS: BP 142/66
--- NOTE | 2019-12-12 20:06 | NUR ---
ORDERS RECEIVED FROM DR BRIZUELA FOR NYSTATIN POWDER TO BE APPLIED QSHIFT TO ABDOMINAL FOLDS.
--- NOTE | 2019-12-12 22:03 | NUR ---
BRANDI REQUESTED AND GIVEN PER PT REQUEST FOR BLE LEG PAIN 8/10 ON PAIN SCALE. PATIENT ABLE TO WIGGLE TOES.
--- NOTE | 2019-12-12 22:48 | NUR ---
NORCO APPEARS EFFECTIVE; PATIENT SLEEPING. EASY REG RESPS ON RA.
[2019-12-13] VITALS: BP 143/52
--- NOTE | 2019-12-13 03:01 | NUR ---
PATIENT CALLS OUT TO USE RR. PATIENT IS FLUSHED APPEARING AND WARM, VITALS WNL AND BLOOD SUGAR CHECK 101. PATIENT IS MORE SLOW TO RESPOND THAN PREVIOUS. ORIENTED TO SELF & LOCATION BUT MAKES IRRELEVANT COMMENTS. SPEECH SEEMING TO BE RETURNED TO BASELINE. ASSISTED TO BSC BY PA'S, PT VERY WEAK & REPOSITIONED IN BED. PATIENT VERBALIZES NO FURTHER NEEDS. WILL CONT TO MONITOR.
--- NOTE | 2019-12-13 05:45 | NUR ---
AM MEDS TAKEN WITH A SIP OF WATER. WOUND VAC REMAINS PATENT. PATIENT VOICES NO NEEDS. CALL LIGHT IN REACH.
[2019-12-13 08:00] VITALS: BP 144/63
[2019-12-13 12:00] VITALS: BP 140/63
[2019-12-13 16:00] VITALS: BP 126/59
[2019-12-13 20:00] VITALS: BP 140/57
[2019-12-14] VITALS: BP 133/59
[2019-12-14 08:00] VITALS: BP 140/62
--- NOTE | 2019-12-14 08:00 | NUR ---
Skip Operator spoke to patient's [id number]-[id number]. Patient states lives at home with son and [id number]-md-qws. There are 0 steps in the home. Physician: Dr. Randal Pratt Pharmacy: [facility] Home health services: none Patient's level of ADLs: MODERATE ASSIST Patient has working utilities: yes DME: walker, cane Follow-up physician's appointment after d/c: she prefers to make her own follow up appt after discharge Does patient want to access PORTAL?: no Discharge plan discussed with patient's [id number]-mq-far. She lives at home with her son and [id number]-[id number]. Discussed short term SNF and she would like to see about [facility]. Explained patient's insurance is still [place] and that [facility] may not take patient. Patient's Medicare starts December 19. She needs moderate assistance with her ADLs and ambulates with a walker. long term care social worker notified. Discharge plan undecided at this time. No [place] home health company will take patient. [facility] home health companies will not come to [place]. CINDY OWEN
--- NOTE | 2019-12-14 08:30 | NUR ---
Medicated with norco per prn order for complaints of pain to rt leg and rt hip. States pain is moderate.
--- NOTE | 2019-12-14 08:35 | NUR ---
DESTINY TRUONG [id number] Please refer to the physician's history and physical for past medical history, comorbid conditions, and allergies. Diagnosis: JESSICA CHF STASIS ULCER OF RIGHT LOWER EXTREMITY Jorden Score: 17,AT RISK WOUND DESCRIPTIONS: This nurse along with with Lisa Garcia RN evaluated patient for skin impairments. Wound Number: 1 Location of the wound: right anterior mcdonald wound vac intact at 200mmHg low continous. No strikethrough drainage noted at time of assessment. Podiatry to manage wound vac per orders Wound Number: 2 Location of the wound: left abdominal fold Kelly and blanchable at time of assessment. No open areas noted at time of assessment. Wound Number: 3 Location of the wound: intergluteal fold scar tissue noted at time of assessment. No drainage noted at time of assessment. Wound Number: 4 Location of the wound: left anterior ankle Thickness: Full Size: 0.6cm x 0.7cm x 0.1cm Tunneling: none Undermining: none Sinus Tract: none Presence of Exudate: none Amount: none Color: Red Odor: None Periwound Skin Appearance: Normal Wound edges: approximated Pain (associated with wound): none at time of assessment How does patient state this happened? pt unsure how this happened Surface the patient is resting on: Isoflex SKIN PREVENTION RECOMMENDATION: 1. Pressure redistribution support surface as appropriate 2. Elevate heels 3. Remove boots/TEDS every shift and reapply 4. Head of bed 30 degrees as tolerated 5. Assess nutrition and hydration 6. Manage moisture 7. Avoid the use of containment devices while in bed 8. Use absorptive products on surfaces limit layers of linens on bed 9. Turn and reposition every 1-2 hours in bed and every 1 hour in chair as tolerated 10. Weight shifts every 15 minutes while up in chair 11. Offloading with pillows or device to keep heels elevated off bed 12. Monitor skin at least every shift 13. Inspect under medical devices twice a day WOUND TREATMENT RECOMMENDATIONS: Podiatry is already on consult and managing the wound vac to right lower extremity Cleanse left abdominal fold with soap and water pat area dry then apply nystatin powder every 8 hours. Cleanse intergluteal fold with soap and water and apply hydraguard every shift and prn for soiling. Wheelchair cushion when oob. Heel raiser pro boots to bilateral feet while in bed.
--- NOTE | 2019-12-14 09:09 | NUR ---
Nursing screen received and chart reviewed. Patient admitted from home for CHF and JESSICA. If patient has a decline in ADLs, transfers, or functional mobility, please send OT orders. Thank you. Julissa Kinney, OTR/L
--- NOTE | 2019-12-14 09:15 | NUR ---
States that alfreda effective.
--- NOTE | 2019-12-14 09:29 | NUR ---
PHYSICAL THERAPY Screen received pt admitted from home with diagnosis of syncope. Please consult PT if pt has a decline in functional status from baseline,thank you. Rochelle Andrew PT
--- NOTE | 2019-12-14 10:50 | NUR ---
Spoke with pt daughter in law updated on pt. Notified pt that daughter in law called in.
--- NOTE | 2019-12-14 10:50 | NUR ---
Dr. Young notified of wound care recommendations.
--- NOTE | 2019-12-14 11:38 | NUR ---
COMMUNITY HEALTH NAVIGATOR faxed new referral to [facility]. PRECERT will be required. Will need PT/OT Evals to complete referral.
--- NOTE | 2019-12-14 11:50 | NUR ---
Spoke to Dr. Rebollar regarding weight bearing status. Patient can be full weight bearing.
[2019-12-14 12:00] VITALS: BP 121/58
--- NOTE | 2019-12-14 13:35 | NUR ---
PHYSICAL THERAPY Attempted to see pt for evaluation, however pt currently eating lunch will follow once finished eating. Rochelle Andrew PT
--- NOTE | 2019-12-14 13:40 | NUR ---
OT NOTE Occupational therapy orders received and chart reviewed. Patient seated in bed with HOB elevated eating her lunch. Will check back when patient is available for an OT evaluation. Thank you. Julissa Kinney, OTR/L
--- NOTE | 2019-12-14 14:00 | NUR ---
Physical Therapy evaluation completed on fourth floor with full evaluation to follow. Recommend physical therapy per plan of care and SNF upon discharge. Thank you for this referral. Rochelle Andrew PT
--- NOTE | 2019-12-14 14:00 | NUR ---
Occupational Therapy evaluation completed on four with full evaluation to follow. Recommend occupational therapy per plan of care and SNF upon discharge. Thank you for this referral. Julissa Kinney OTR/L
[2019-12-14 16:00] VITALS: BP 114/47
--- NOTE | 2019-12-14 16:35 | NUR ---
Pt sitting up in recliner chair. No distress noted.
--- NOTE | 2019-12-14 16:35 | NUR ---
Dr. Chacko states that rapid covid was negative.
[2019-12-14 20:00] VITALS: BP 132/48
--- NOTE | 2019-12-14 20:00 | NUR ---
PATIENT IS AAOX3 WITH EASY AND REGULAR RESPERS ON ROOM AIR. ASSESSMENT IS COMPLETE WITH NO C/O OR S/S OF DISTRESS NOTED AT THIS TIME. PATIENT RESTING IN CHAIR. CALL LIGHT IS WITHIN REACH, WILL CONTINUE TO MONITOR, SEE INTERVENTIONS.
--- NOTE | 2019-12-14 21:30 | NUR ---
PATIENT TRANSFERED FROM CHAIR TO BED WITH HELP FROM [facility]. BED IS LOW, LOCKED, ALARMED, AND CALL LIGHT IS WITHIN REACH. WILL CONTINUE TO MONITOR.
--- NOTE | 2019-12-14 23:03 | NUR ---
PLACED PATIENT ON BIPAP FOR HS
--- NOTE | 2019-12-14 23:45 | NUR ---
PATIENT ASSESSMENT COMPLETE WITHOUT INCIDENT, PATIENT DENIES ANY PAIN, DISTRESS OR NEEDS AT THIS TIME. PATIENT RESTING IN BED IN A POSITION OF COMFORT. CALL LIGHT WITHIN REACH WILL CONTINUE TO MONITOR.
[2019-12-15] VITALS: BP 133/63
--- NOTE | 2019-12-15 02:45 | NUR ---
PATIENT RESTING IN BED IN A POSITION OF COMFORT, NO SIGNS OR SYMPTOMS OF PAIN OR DISTRESS NOTED AT THIS TIME. RESPIRATIONS EASY AND NON-LABORED. CALL LIGHT WITHIN REACH WILL CONTINUE TO MONITOR.
--- NOTE | 2019-12-15 03:40 | NUR ---
Upon discharge recommend patient to follow up for wound care in outpatient setting continue current wound care orders at discharging facility.
--- NOTE | 2019-12-15 07:10 | NUR ---
Notified Dr. Young patient can not be accepted to [facility] until her insurance changes on December 19.
--- NOTE | 2019-12-15 07:19 | NUR ---
CARRIER WASHER spoke with [facility]. [facility] is unable to accept the patient as she currently has [place] [employer] Insurance and [facility] is unable to accept it. Per Patient she is switching to Medicare on December 19.
[2019-12-15 08:00] VITALS: BP 132/55
--- NOTE | 2019-12-15 08:21 | NUR ---
Left message for [id number], Radha, regarding discharge planning. Awaiting return call.
--- NOTE | 2019-12-15 09:09 | NUR ---
PT REQUESTED AND WAS MEDICATED WITH NORCO FOR C/O RIGHT SHOULDER PAIN. CALL LIGHT IN REACH. WILL MONITOR
--- NOTE | 2019-12-15 10:00 | NUR ---
PT STATES MEDICATION EFFECTIVE.
--- NOTE | 2019-12-15 10:00 | NUR ---
Spoke to [id number], Radha, regarding discharge planning. Explained [facility] is not able to take patient due to her insurance and she verbalized an understanding. Discussed patient returning home with family. Radha is agreeable to take the patient home. She is requesting a hospital bed and O2 at home. Dr. Young notified.
--- NOTE | 2019-12-15 10:30 | NUR ---
DR DONOVAN IN TO SEE PT, WOUND VAC CHANGED BY HIM.
--- NOTE | 2019-12-15 11:05 | NUR ---
PHYSICAL THERAPY Patient seen this am 1;1 for therapy visit and was resting supine in bed upon therapist arrival. Patient identified by name / and reports 8/10 R lateral mid Gastroc pain at port of Wound Vac entry. Patient states Rugby League Footballer was in to see her this am and changed her mickey wrap as her leg has been sore since. OT assistant reading teacher was also present for observation only as patient transfers supine to sit EOB with MIN A x 1. Patient completed several sit to stand transfers CGA, then SPT to bedside chair, use of wh walker, CGA, demonstrating very slow step sequence. Patient needed v/c for safe walker navigation while turning, including v/c for proper hand plaacement prior to sitting down, Patient also completed SPT from chair to BSC, wh walker, CGA x 1 and [facility] with B LE's elevated, semi reclined in chair. Patient remained with call light , tray table, telephone and body alarm for safety. Will continue per POC as tolerated, total treatment time 17 minutes.
--- NOTE | 2019-12-15 11:24 | NUR ---
OT NOTE Pt was seen this A.M. 1:1 for 24 minute OT session. Upon arrival pt was supine in bed. Pt identified by name and and had complaints of 8/10 RLE/foot pain and presented to therapy with RLE wound vac which remained in place throughout entire session. Pt transferred supine to sit EOB with Angie. Pt then completed multiple sit to stand transfers from bed level with CGA and use of w/w for UE support. Challenged pt's static standing tolerance needed for increased I in self care tasks and functional transfers, pt was able to tolerate aprox 2 minutes at a time before sitting due to fatigue and pain in her RLE. Standing pivot then completed to the bedside recliner with CGA and use of w/w. This therapist then placed a bedside commode in the room, sit to stand completed from chair level with Angie due to low surface followed by standing pivot from the chair to the bedside commode with CGA. Pt was able to transfer on/off bedside commode with CGA and completed standing pivot back to the recliner with CGA. While seated pt completed BUE towel exercises over all planes of motion for 1 X 10 to increase and restore maximum functional strength. Pt was left sitting upright in the recliner with call light in hand, tray table in place, and body alarm activated for safety. Continue with rec D/C plan to SNF. DYAN Knutson
[2019-12-15 12:00] VITALS: BP 107/45
[2019-12-15 16:00] VITALS: BP 130/52
--- NOTE | 2019-12-15 16:00 | NUR ---
Patient resting quietly with no c/o discomfort. Respirations easy and regular. Vital signs stable. No overt distress. MICHAEL JIN R
[2019-12-15 20:00] VITALS: BP 116/51
--- NOTE | 2019-12-15 21:20 | NUR ---
PATIENT IS AWAKE AND ALERT WITH EASY AND REGULAR RESPERS ON ROOM AIR. ASSESSMENT IS COMPLETE WITH NO C/O OR S/S OF DISTRESS NOTED. PATIENT IN CHAIR. CALL LIGHT IS WITHIN REACH. WILL CONTINUE TO MONITOR, SEE INTERVENTIONS.
[2019-12-16] VITALS: BP 128/45
--- NOTE | 2019-12-16 02:27 | NUR ---
PATIENT SLEEPING WITH EASY AND REGULAR RESPERS ON ROOM AIR. CALL LIGHT IS WITHIN REACH.
--- NOTE | 2019-12-16 05:16 | NUR ---
PATIENT AWAKENES EASILY FOR AM MEDICATIONS. CALL LIGHT IS WITHIN REACH. NO C/O VOICED AT THIS TIME.
[2019-12-16 07:28] LABS: POTASSIUM 3.4 mmol/L (3.5-5.1)
[2019-12-16 07:29] LABS: CREATININE 1.23 mg/dL (0.55-1.02)
--- NOTE | 2019-12-16 07:30 | NUR ---
Discussed discharge planning with Dr. Young. Awaiting referral to [facility]. food service utility worker following.
[2019-12-16 07:33] LABS: BASO # 0.1 10*3/uL (0.0-0.1); BASO % 1.4 % (0.0-1.0); EOS # 0.3 10*3/uL (0.0-0.4); EOS % 5.5 % (1.0-4.0); HEMATOCRIT 37.7 % (37.0-47.0); LYMPH # 1.2 10*3/uL (1.3-4.4); MEAN CELL VOLUME 98.2 fl (81.0-99.0); MEAN CORPUSCULAR HGB 31.3 pg (27.0-31.0); MEAN CORPUSCULAR HGB CONC 31.8 g/dl (33.0-37.0); MEAN PLATELET VOLUME 12.6 fl (9.6-12.3); MONO # 0.5 10*3/uL (0.1-1.0); MONO % 8.2 % (3.0-9.0); NEUT # 3.6 10*3/uL (2.3-7.9); NEUT % 63.5 % (47.0-73.0); PLATELET COUNT AUTOMATED 169 10*3/uL (130-400); RED BLOOD COUNT 3.84 10*6/uL (4.10-5.10); RED CELL DISTRI WIDTH 13.2 % (0-14.5); WHITE BLOOD COUNT 5.6 10*3/uL (4.8-10.8)
[2019-12-16 08:00] VITALS: BP 140/57
--- NOTE | 2019-12-16 08:30 | NUR ---
PT RESTING IN BED. NO DISTRESS NOTED. WILL MONITOR
--- NOTE | 2019-12-16 09:35 | NUR ---
PHYSICAL THERAPY Pateint seen this am 1:1 for therapy visit and was supine in bed upon therapist arrival. Patient identified by name / and reports no c/o's pain at this time. OT medical receptionist medical assistant was also present for observation only this session as patient performs supine to sit EOB transfer with MIN/MOD A, demonstrating increased difficulty moving B LE's. Patient tolerated static EOB sit x several minutes, prior to performing sit to stand transfer, MIN A, with use of wh walker standing support. Patient needed v/c to improve walker safety / navigation during SPT to BSC, then BSC to bedside chair, CGA x 1. Patient was very cautious demonstrating very slow step sequence and required v/c for proper hand placement prior to sitting down in chair. Patient remained in bedside chair with call light, tray table, telephone and body alarm for safety. Will continue per POC as tolerated, total treatment time 16 minutes. Narinder Mcgarry, UNDERCUTTER
--- NOTE | 2019-12-16 10:00 | NUR ---
OT NOTE Pt was seen this A.M. 1:1 for 25 minute OT session. Upon arrival pt was supine in bed. Pt identified by name and and had no complaints at this time. Pt presented to therapy with wound vac to RLE which remained in place throughout the entire session. Pt transferred supine to sit EOB with modA for assist with UB and BLE's. Pt then completed multiple sit to stand transfers from bed level with Angie and use of w/w for UE support. Challenged pt's static standing tolerance needed for increased I in self care tasks and functional transfers and pt was able to tolerate aprox 4 minutes before sitting due to fatigue. Pt then completed standing pivot from the EOB to the bedside commode with CGA and use of w/w. There she transferred on/off bedside commode with CGA. Clothing management completed with maxA and toilet hygiene completed with maxA due to being very unsteady without UE support. Functional mobility was then completed back to the recliner with CGA and use of w/w with min verbal prompts for walker safety. Once seated pt completed BUE towel exercises over all planes of motion for 1 X 10 to increase and restore maximum functional strength. Pt was left sitting upright in the recliner with call light in hand, tray table in place, and body alarm activated for safety. Continue with rec D/C plan to SNF. LYRIC Knutson/Jordan
[2019-12-16 12:00] VITALS: BP 118/50
[2019-12-16 16:00] VITALS: BP 116/50
--- NOTE | 2019-12-16 17:08 | NUR ---
PT RESTING IN CHAIR. NO DISTRESS NOTED. WILL MONITOR
[2019-12-16 20:00] VITALS: BP 140/69
[2019-12-17] VITALS: BP 136/65
--- NOTE | 2019-12-17 05:50 | NUR ---
AM MEDICATIONS TAKEN EASILY WITH WATER. PATIENT PROVIDED WITH FRESH ICE WATER. HAS NO C/O AND WISHES TO GO BACK TO SLEEP. BED ALARM MAINTAINED FOR SAFETY, CALL LIGHT IN REACH, BED LOW & LOCKED.
[2019-12-17 08:00] VITALS: BP 141/66
--- NOTE | 2019-12-17 10:30 | NUR ---
Received call from Radha, [id number], regarding being able to see patient in the hospital prior to her being discharged to [facility]. Explained visitors are still not allowed in the hospital. She states that her son wants to see her prior to her going to the correction. Again explained that due to COVID visitors are not allowed in the hospital unless it is extenuating circumstances. She states her son will provide transportation the [facility] when the patient is discharged. fruit i farmworker notified.
--- NOTE | 2019-12-17 11:14 | NUR ---
OT NOTE Patient was seen this date for 15 minutes of 1:1 OT treatment to maximize safety and independence with ADLs and transfers. Patient was agreeable to OT treatment this date. Patient was A&Ox3, stating she was "in a hospital" but did not know the name. Patient was seated in the chair. Patient educated on safe hand placement for transfers and began reaching her RUE behind her rather than the arm rest. When asked what the patient was reaching for, she said she was trying to "rebalance my body". Patient required hand over hand placement to find the arm rests. With significant increased time, patient completed a chair transfer with Mod Ax2 and further mobility with Min Ax2 with the WW. She returned to the chair and was confused and slow to respond to questions. Patient day care aide into room and took machine BP noted at 132/57. Nursing into room to assess patient and stated it was okay to continue with therapy. Patient returned to the chair and completed 1x10 B/L UE ROM exercise to restore strength for future ADL participation. She completed grooming exercises seated with set-up assistance. By conclusion, patient appeared less confused and more alert. Patient seated in chair, alarm on, and all needs within reach. Recommend continue with POC, d/c to SNF. Julissa Kinney, OTR/L
--- NOTE | 2019-12-17 11:15 | NUR ---
PHYSICAL THERAPY Physical therapy treatment session complete. Total treatment time: 10 minutes. Patient seated in recliner chair at beginning of session and agreeable to skilled PT services. OT present throughout treatment. Patient A&O x3. Slow to answer questions, follow commands, and mildly confused intermittently throughout treatment session. Patient reaching right arm toward windows at beginning of session, stating she was trying to "rebalance" herself. Educated patient of neutral/centered position prior to therapy progression. Patient's initial attempt to stand, ModA x2 with FWW. Patient required verbal and tactile cueing for safety. Patient slow to follow commands throughout session. Patient gait trained 6'x1 forward with FWW and chair follow. Patient returned to seated position. Nursing in to assess vitals: BP 132/57. Patient remained in chair at end of session. Comfortable, call severino within reach. Continue to recommend SNF at discharge. Thank you. Ashlee Etienne,PT,DPT
--- NOTE | 2019-12-17 11:20 | NUR ---
MANAGER HRIS FAXED UPDATES TO [facility]. AWAITNG ACCEPTANCE.
[2019-12-17 12:00] VITALS: BP 132/57
--- NOTE | 2019-12-17 14:58 | NUR ---
OCCUPATIONAL THERAPY CO-SIGN I approve of the Occupational Therapy notes written above. Niharika Mendoza OTR/L
[2019-12-17 16:00] VITALS: BP 104/58
[2019-12-17 20:00] VITALS: BP 146/56
[2019-12-18] VITALS: BP 132/64
[2019-12-18 08:00] VITALS: BP 136/52
--- NOTE | 2019-12-18 10:00 | NUR ---
PATIENT IS SITTING IN CHAIR. NO COMPLAINTS.
[2019-12-18 12:00] VITALS: BP 116/65
[2019-12-18 16:00] VITALS: BP 121/48
[2019-12-18 20:00] VITALS: BP 124/79
--- NOTE | 2019-12-18 23:45 | NUR ---
COMPLETING BREATHING TREATMENT AT THIS TIME. NO VOICED COMPLAINTS. CALL LIGHT IN REACH.
[2019-12-19] VITALS: BP 135/68
--- NOTE | 2019-12-19 00:39 | NUR ---
24HR CHART CHECK COMPLETED
[2019-12-19 07:00] LABS: BASO # 0.1 10*3/uL (0.0-0.1); BASO % 1.3 % (0.0-1.0); EOS # 0.3 10*3/uL (0.0-0.4); EOS % 4.6 % (1.0-4.0); HEMATOCRIT 36.1 % (37.0-47.0); LYMPH # 1.2 10*3/uL (1.3-4.4); LYMPH % 22.4 % (27.0-41.0); MEAN CELL VOLUME 97.8 fl (81.0-99.0); MEAN CORPUSCULAR HGB 31.4 pg (27.0-31.0); MEAN CORPUSCULAR HGB CONC 32.1 g/dl (33.0-37.0); MEAN PLATELET VOLUME 12.5 fl (9.6-12.3); MONO # 0.5 10*3/uL (0.1-1.0); MONO % 9.6 % (3.0-9.0); NEUT # 3.3 10*3/uL (2.3-7.9); NEUT % 61.7 % (47.0-73.0); PLATELET COUNT AUTOMATED 160 10*3/uL (130-400); RED BLOOD COUNT 3.69 10*6/uL (4.10-5.10); RED CELL DISTRI WIDTH 13.2 % (0-14.5); WHITE BLOOD COUNT 5.4 10*3/uL (4.8-10.8)
[2019-12-19 07:29] LABS: POTASSIUM 3.6 mmol/L (3.5-5.1)
[2019-12-19 07:50] LABS: ALBUMIN 3.1 gm/dl (3.1-4.5); CREATININE 1.19 mg/dL (0.55-1.02); TOTAL PROTEIN 6.6 gm/dL (6.4-8.2)
[2019-12-19 08:00] VITALS: BP 142/65
--- NOTE | 2019-12-19 11:35 | NUR ---
PATIENT HAS BEEN BATHED AND IS UP IN CHAIR. C/O HEADACHE TYLENOL HAS BEEN GIVEN.
[2019-12-19 12:00] VITALS: BP 130/54
[2019-12-19 16:00] VITALS: BP 116/55
[2019-12-19 20:00] VITALS: BP 142/59
--- NOTE | 2019-12-19 22:13 | NUR ---
24 HR chart check completed.
--- NOTE | 2019-12-19 22:14 | NUR ---
PATIENT RESTING IN BED QUIETLY WITH NO COMPLAINTS. NO SIGNS OR SYMPTOMS OF DISTRESS/DISCOMFORT. REPOSITIONED IN BED. NITRO PATCH REMOVED FROM RIGHT ARM AT 2150. ALL MEDS TAKEN WITH NO PROBLEM. PATIENT VERBALIZES HOW TO USE CALL LIGHT. CALL LIGHT IN REACH. WILL CONTINUE TO MONITOR.
[2019-12-20] VITALS: BP 139/58
--- NOTE | 2019-12-20 07:30 | NUR ---
PT RESTING IN CHAIR. VOICES NO CONCERNS AT THIS TIME. RESPS EASY AND NON LABORED. NO S/S OF DISTRESS NOTED. VSS. WHTE BOARD UPDATED. PLAN OF CARE DISCUSSED W PT. CALL LIGHT WITHIN REACH. BODY ALARM INTACT. PT NOTED TO HAVE A VERY DELAYED RESPONSE TIME. A/O, PERIODS OF CONFUSION.
--- NOTE | 2019-12-20 07:45 | NUR ---
PHYSICAL THERAPY Patient seen this am 1;1 for therapy visit and was just awakening supine in bed upon therapist arrival. Patient identified by name / and was joined by OT dental ceramist assistant who was present for observation only this session. Patient presented with R LE wound vac, reporting no c/o's pain at this time. Patient transfers supine to sit EOB with MOD A, tolerating static EOB sit x several minutes, CGA x 1. then sit to stand MIN A with use of walker standing support. Patient ambulated ad alvaro in room around bed, 17'x 1, walker, CGA, demonstrating very slow, "waddling" gait pattern. Patient received v/c for increased stride, increased focus on task as patient easily distracted with bouts of "hazy" behaviour. Patient returned to bedside chair and remained with call light, tray table, telephone and body alarm for safety. Will continue per POC as tolerated, total treatment time 14 minutes. Narinder Mcgarry, TIMBER DEADENER
--- NOTE | 2019-12-20 07:50 | NUR ---
OT NOTE Pt was seen this A.M. 1:1 for 25 minute OT session. Upon arrival pt was supine in bed. Pt identified by name and and had no complaints at this time. Pt presented to therapy with wound vac to E which remained in place throughout entire session. Pt transferred supine to sit EOB with modA and use of bed rail for UE support. Sit to stand then completed from bed level with Angie and use of w/w for UE support. Challenged pt's static standing tolerance needed for increased I in self care tasks and functional transfers and pt was able to tolerate aprox 4 minutes at a time before sitting due to fatigue. Functional mobility was then completed to the bathroom door then to the recliner with CGA and use of w/w for UE support. Once seated in the recliner pt completed BUE towel exercises over all planes of motion for 1 X 10 to increase and restore maximum functional strength. Throughout session pt required min verbal prompts for attention to task. Pt was left sitting upright in the recliner with call light in hand, tray table in place, and body alarm activated for safety. Continue with rec D/C plan to SNF. LYRIC Knutson/Jordan
[2019-12-20 08:00] VITALS: BP 144/56
--- NOTE | 2019-12-20 08:21 | NUR ---
WAITING ON ACCEPTANCE FROM THE [facility]. STREET LIGHT SERVICER HELPER FAXED UPDATES TO [facility].
--- NOTE | 2019-12-20 09:07 | NUR ---
SPOKE WITH PODIATRY REGARDING WOUND VAC NEEDING CHANGED BEFORE DISCHARGE. STATES THE PERSON RAG WILLOW OPERATOR WILL COME UP AND CHANGE IT.
--- NOTE | 2019-12-20 09:44 | NUR ---
PODIATRY IN TO SEE PT
--- NOTE | 2019-12-20 09:45 | NUR ---
PODIATRY REMOVED WOUND VAC. COVERED WITH A WET TO DRY DRESSING. DISCHARGE PHOTO OBTAINED AT THIS TIME. AWAITING CONFIRMATION FOR PT TO GO TO [facility]
--- NOTE | 2019-12-20 09:52 | NUR ---
PER [facility] THEY WILL ORDER A WOUND VAC THROUGH THE COMPANY THEY ARE CONTRACTED WITH.
--- NOTE | 2019-12-20 11:08 | NUR ---
[facility]. Faxed note from Dr. Peterson to [facility].
--- NOTE | 2019-12-20 11:16 | NUR ---
ICE CREAM FREEZER FAXED PT/OT TO [facility]
[2019-12-20 12:00] VITALS: BP 137/57
--- NOTE | 2019-12-20 12:06 | NUR ---
PER [facility]. SHE HAS A CALL INTO THE COUNTY TO VERFY PATIENTS INSURANCES AND WILL BE CALLING [place], PATIENTS LISTED INSURACE TO SEE WHAT COVERAGE THE PATIENT HAS. DESPATCH CLERK CINDY NOTIFIED.
--- NOTE | 2019-12-20 13:22 | NUR ---
WOUND VAC CLEANED AND BAGGED. FACTORY WORKER NOTIFIED THAT IT IS ON THE FLOOR BY NURSES STATION FOR NUT ROASTER
--- NOTE | 2019-12-20 14:43 | NUR ---
PT RESTING IN CHAIR SLEEPING. RESPS EASY AND NON LABORED. NO S/S OF DISTRESS NOTED. STILL WAITING TO HEAR IF PT IS GOING TO [facility] TODAY. BODY ALARM ON. CALL LIGHT WITHIN REACH.
--- NOTE | 2019-12-20 14:49 | NUR ---
[facility] IS SPEAKING WITH HER CORPORATE OFFICE TO SEE IF THE PATIENT WOULD BE ABLE TO GO TO THEIR FACILITY UNDER HER [place] MEDICAID. IF SO A LEVEL OF CARE AND PASRR WILL BE NEEDED. WILL AWAIT TO HEAR FROM [facility].
[2019-12-20 16:00] VITALS: BP 117/89
[2019-12-20 20:00] VITALS: BP 140/65
--- NOTE | 2019-12-20 21:36 | NUR ---
PATIENT RESTING IN BED. NO COMPLAINTS AT THIS TIME. CALL LIGHT WITHIN REACH. WILL CONTINUE TO MONITOR.
[2019-12-21] VITALS: BP 128/59
--- NOTE | 2019-12-21 01:04 | NUR ---
24 HR chart check completed.
--- NOTE | 2019-12-21 07:00 | NUR ---
DESTINY TRUONG [id number] Please refer to the physician's history and physical for past medical history, comorbid conditions, and allergies. Diagnosis: JESSICA CHF STASIS ULCER OF RIGHT LOWER EXTREMITY Jorden Score: 17,AT RISK WOUND DESCRIPTIONS: This nurse along with with Lisa Garcia RN evaluated patient for skin impairments. Wound Number: 1 Location of the wound: right anterior mcdonald dressing intact. No strike through drainage noted at time of assessment. Podiatry to change and manage dressing to right anterior mcdonald was changed on 12/20/19. Wound Number: 2 Location of the wound: left abdominal fold Linneus and blanchable at time of assessment. No open areas noted at time of assessment. Wound Number: 3 Location of the wound: intergluteal fold scar tissue noted at time of assessment. No drainage noted at time of assessment. Wound Number: 4 Location of the wound: left anterior ankle Thickness: Partial Size: 0.2cm x 0.5cm x <0.1cm Tunneling: none Undermining: none Sinus Tract: none Presence of Exudate: none Amount: none Color: Red Odor: None Periwound Skin Appearance: Normal Wound edges: approximated Pain (associated with wound): none at time of assessment How does patient state this happened? pt unsure how this happened Surface the patient is resting on: Isoflex SKIN PREVENTION RECOMMENDATION: 1. Pressure redistribution support surface as appropriate 2. Elevate heels 3. Remove boots/TEDS every shift and reapply 4. Head of bed 30 degrees as tolerated 5. Assess nutrition and hydration 6. Manage moisture 7. Avoid the use of containment devices while in bed 8. Use absorptive products on surfaces limit layers of linens on bed 9. Turn and reposition every 1-2 hours in bed and every 1 hour in chair as tolerated 10. Weight shifts every 15 minutes while up in chair 11. Offloading with pillows or device to keep heels elevated off bed 12. Monitor skin at least every shift 13. Inspect under medical devices twice a day WOUND TREATMENT RECOMMENDATIONS: Podiatry is already on consult and managing wound to right lower extremity and will follow upon discharge Continue hydraguard: Cleanse intergluteal fold with soap and water and apply hydraguard every shift and prn for soiling. Continue wheelchair cushion when oob. Continue heel raiser pro boots to bilateral feet while in bed.
[2019-12-21 08:00] VITALS: BP 129/57
--- NOTE | 2019-12-21 09:30 | NUR ---
PER [facility] PATIENT IS ABLE TO GO TO THE FACILITY UNDER HER [place] MEDICAID. LEVEL OF CARE IS NEEDED FOR PATIENT TO GO TO THE FACILITY. MEDICAL WRITER COMPLETED LEVEL OF CARE AND FAXED IT TO THE [facility] FOR APPROVAL. WILL AWAIT TO HEAR FROM [facility]. MEDICAL WRITER DID COMPLETE HENS.
--- NOTE | 2019-12-21 09:59 | NUR ---
SYNCHRO ASSEMBLER FAXED WOUND CARE ORDERS AND ORDERS FOR WOUND VAC TO [facility]
--- NOTE | 2019-12-21 10:20 | NUR ---
PHYSICAL THERAPY Patient seen this am 1:1 for therapy visit and was sitting on BSC following patient care upon therapist arrival. Patient identified by name / and reports no new c/o's at this time. OT media center assistant was present this morning for observation only as patient completed sit to stand transfer, MIN A x 1. Patient ambulated 40'x 1, use of wh walker, CGA, demonstrating slow, cautious gait pattern and decreased stride. Patient needed v/c to improve safe 90/180 turns as she demonstrated unsteady step sequence, including Poor walker safety, navigation. Patient returned to bedside chair for brief seated rest secondary to increased fatigue and was able to ambulate additional 20'x 2, wh walker, CGA, once again demonstrating quick onset of fatigue and decreased focus on task once tired. Patient returned to bedside chair and remained semi reclined with call light, tray table and telephone. Will continue per POC as tolerated, total treatment time 18 minutes. Narinder Mcgarry, TRIMMING PRESS OPERATOR
--- NOTE | 2019-12-21 10:37 | NUR ---
OT NOTE Pt was seen this A.M. 1:1 for 28 minute OT session. Upon arrival pt was sitting upright on the bedside commode. Pt identified by name and and had no complaints at this time. Pt completed sit to stand from bedside commode with Angie and use of w/w for UE support. Clothing management completed with modA and toilet hygiene completed with maxA due to being unsteady without UE support. Functional mobility was then completed to the recliner with CGA and use of w/w where she sat for a seated rest break. While seated pt completed BUE towel exercises over all planes of motion for 1 X 10 to increase and restore maximum functional strength. Sit to stand then completed from the recliner with Angie due to low surface and use of w/w for UE support. Functional mobility was then completed to the bathroom with CGA where she transferred on/off standard commode with CGA and use of grab bar for UE support. Encouraged pt and educated staff to use the standard commode throughout the day versus a bedside commode or bed roca, both verbalized understanding. Functional mobility was then completed back to the recliner for a seated rest due to quick onset of fatigue. Pt was left sitting reclined in the recliner with call light in hand, tray table in place, and phone in reach. Continue with rec D/C plan to SNF. DYAN Knutson
[2019-12-21 12:00] VITALS: BP 133/75
--- NOTE | 2019-12-21 12:51 | NUR ---
COIN MACHINE COLLECTOR RECEIVED BACK LOC FROM [facility]. COIN MACHINE COLLECTOR EMAILED IT TO [facility]. WILL AWAIT TO HEAR FROM [facility].
--- NOTE | 2019-12-21 14:21 | NUR ---
PATIENT IS ABLE TO GO TO [facility]. AWAITING TO SPEAK WITH RN ABOUT A TIME.
--- NOTE | 2019-12-21 14:21 | NUR ---
DAIRY ASSOCIATE ATTEMPTED TO REACH RN ABOUT DISCHARGE. ASKED RN HOPE TO HAVE PATIENT RN RETURN THE CALL.
--- NOTE | 2019-12-21 14:36 | NUR ---
Spoke to [id number], Radha, regarding her [id number] discharging to [facility]. She states her son will be on his way shortly to transport.
--- NOTE | 2019-12-21 14:37 | NUR ---
DATA ANALYTICS DEVELOPER SPOKE WITH [facility], FAMILY IS GOING TO TRANSPORT PER OIL PROCESS STILLMAN CINDY. CINDY REACHED OUT TO THE PATIENTS FAMILY WHO STATED THEY DOWN TO PICK THE PATIENT UP. DATA ANALYTICS DEVELOPER NOTIFIED [facility].
--- NOTE | 2019-12-21 14:59 | NUR ---
POLICE SERGEANT EMAILED [facility] COVID RESULTS.
--- NOTE | 2019-12-21 15:53 | NUR ---
Discharge instructions reviewed with patient/family. Patient receptive and verbalizes understanding. Follow-up care arranged. Written instructions given to patient/family. HEPLOCK DISCONTINUED. WOUND PHOTO TAKEN OF RIGHT XIONG. ALL OTHER AREAS OF SKIN CLOSED. REPORT GIVEN TO [facility] @ [facility]. PT'S WOUND VAC FROM HOME & BOTTLE OF HOME MEDS PUT IN BELONGING BAG, NOTIFIED NURSE. MERARI CONTEH
--- NOTE | 2019-12-22 07:35 | NUR ---
OCCUPATIONAL THERAPY CO-SIGN I approve of the Occupational Therapy notes written above. JUAN LUIS DEL VALLE, OTR/L
--- NOTE | 2019-12-22 08:00 | NUR ---
PHYSICAL THERAPY CO-SIGN I approve of the Physical Therapy notes written above. CINDY LARSEN PT, DPT
== END 2019-12-21 15:53 | DRG 291 ==
LOC: ED 23:35 → 4E 12-11 02:25 → EDHOLD 12-11 02:25 → 4E 12-11 02:56
PROVIDERS: Emergency Medicine Emergency Medical Services; ADMIT Internal Medicine
DX: I50.33 Acute on chronic diastolic (congestive) heart failure (principal); G93.41 Metabolic encephalopathy; N17.9 Acute kidney failure, unspecified; F33.0 Major depressive disorder, recurrent, mild; Z68.43 Body mass index [BMI] 50.0-59.9, adult; R62.7 Adult failure to thrive; M19.91 Primary osteoarthritis, unspecified site; G30.1 Alzheimer's disease with late onset; F02.80 Dementia in other diseases classified elsewhere, unspecified severity, without behavioral disturbance, psychotic disturbance, mood disturbance, and anxiety; E66.01 Morbid (severe) obesity due to excess calories; G40.409 Other generalized epilepsy and epileptic syndromes, not intractable, without status epilepticus; I25.10 Atherosclerotic heart disease of native coronary artery without angina pectoris; E78.2 Mixed hyperlipidemia; G93.89 Other specified disorders of brain; K21.9 Gastro-esophageal reflux disease without esophagitis; I73.9 Peripheral vascular disease, unspecified; I87.2 Venous insufficiency (chronic) (peripheral); R55 Syncope and collapse; E87.6 Hypokalemia; Z66 Do not resuscitate; N18.3 Chronic kidney disease, stage 3 (moderate); Z86.718 Personal history of other venous thrombosis and embolism; Z79.01 Long term (current) use of anticoagulants; Z79.899 Other long term (current) drug therapy

== ENCOUNTER 2019-12-21 21:24 | Emergency (ER) | payer OTHER | END 2019-12-22 01:03 | disposition other institution (70) | LOC: ED 21:24 | DX: S09.90XA Unspecified injury of head, initial encounter (principal); I50.9 Heart failure, unspecified; J45.909 Unspecified asthma, uncomplicated; R56.9 Unspecified convulsions; I25.2 Old myocardial infarction; Z79.899 Other long term (current) drug therapy; Z79.82 Long term (current) use of aspirin ==

== ENCOUNTER → 2020-02-02 | Day surgery (SDC) | payer MEDICARE, MEDICAID ==
[~2020-02-02] VITALS: Ht 152.4 cm; Wt 119.7 kg
[~2020-02-02] MED LIST changes: +AMPICILLIN500 MG PO; +COMBIVENT RESPIM4 GM INH; +DOXYCYCLINE100 M3 PO; -GABAPENTIN100 M2 PO; +KLOR-CON M1010 ME1 PO; +MESALAMINE DR400 MG PO; -MESALAMINE1.2 GM PO; +NEURONTIN300 MG PO; +TRAMADOL HCL50 MG PO
[2020-02-02 12:53] VITALS: BP 107/81
[2020-02-02 12:56] VITALS: BP 123/59
[2020-02-02 13:11] VITALS: BP 128/57
[2020-02-04 12:11] LABS: ACID FAST SPEC PROCESSING Tissue Grinding (.)
== END | disposition home or self-care (01) ==
LOC: SDC 01-31 08:00
PROVIDERS: Podiatrist
DX: L97.319 Non-pressure chronic ulcer of right ankle with unspecified severity (principal); I25.2 Old myocardial infarction; I25.10 Atherosclerotic heart disease of native coronary artery without angina pectoris; F41.9 Anxiety disorder, unspecified; F32.9 Major depressive disorder, single episode, unspecified; J45.909 Unspecified asthma, uncomplicated; Z98.890 Other specified postprocedural states; Z79.899 Other long term (current) drug therapy

== ENCOUNTER 2020-06-29 17:00 | Inpatient (IN) | payer MEDICARE ==
[~2020-06-29] VITALS: Ht 152.4 cm; Wt 119.4 kg
[2020-06-29 17:05] VITALS: BP 158/74
[2020-06-29 17:46] LABS: BASO # 0.1 10*3/uL (0.0-0.1); BASO % 1.3 % (0.0-1.0); EOS # 0.1 10*3/uL (0.0-0.4); EOS % 1.5 % (1.0-4.0); HEMATOCRIT 42.9 % (37.0-47.0); LYMPH % 20.7 % (27.0-41.0); MEAN CELL VOLUME 92.1 fl (81.0-99.0); MEAN CORPUSCULAR HGB CONC 32.6 g/dl (33.0-37.0); MEAN PLATELET VOLUME 13.5 fl (9.6-12.3); MONO # 0.4 10*3/uL (0.1-1.0); NEUT # 3.1 10*3/uL (2.3-7.9); NEUT % 68.3 % (47.0-73.0); PLATELET COUNT AUTOMATED 139 10*3/uL (130-400); RED BLOOD COUNT 4.66 10*6/uL (4.10-5.10); RED CELL DISTRI WIDTH 12.6 % (0-14.5); WHITE BLOOD COUNT 4.6 10*3/uL (4.8-10.8)
[2020-06-29 18:05] LABS: ACT PARTIAL THROMBO TIME 27.6 SECONDS (20.0-32.1); INTERNATIONAL NORM RATIO 1.2 (2.0-3.5)
[2020-06-29 18:07] LABS: ALBUMIN 3.7 gm/dl (3.1-4.5); ALKALINE PHOSPHATASE 89 U/L (45-117); BUN 15 mg/dl (7-24); CHLORIDE 103 mmol/L (98-107); CREATININE 1.41 mg/dL (0.55-1.02); LIPASE 99 U/L (73-393); SGOT/AST 23 IU/L (3-35); SGPT/ALT 21 U/L (12-78); SODIUM 141 mmol/L (136-145); TOTAL PROTEIN 7.2 gm/dL (6.4-8.2)
[2020-06-29 18:10] LABS: POTASSIUM 2.4 mmol/L (3.5-5.1); TROPONIN I < 0.015 ng/ml (<0.045)
[2020-06-29 18:41] VITALS: BP 130/60
--- NOTE | 2020-06-29 18:54 | NUR ---
SPOKE WITH PT FAMILY AND GAVE THEM A PT UPDATE---MONIQUE RODRIGUEZ RN
--- NOTE | 2020-06-29 20:18 | NUR ---
PT C/O BURNING WITH K+ IV, SPOKE WITH DR. HOFFMANN AND REQUESTED A 500ML BAG OF NS TO RUN WITH INFUSION TO MAKE PT MORE COMFORTABLE, DR TESFAYE
--- NOTE | 2020-06-29 20:43 | NUR ---
PT TOLERATING K+ BETTER WITH FLUIDS RUNNING, NO ACUTE DISTRESS NOTED, RN WILL CONTINUE TO MONITOR
[2020-06-29 22:06] LABS: BILIRUBIN Negative (Negative); BLOOD Negative (Negative); CLARITY Clear (Clear); COLOR Yellow (Yellow); GLUCOSE Negative (Negative); KETONE Negative (Negative); LEUKO ESTERASE Negative (Negative); NITRITE Negative (Negative); UROBILINOGEN 0.2 E.U./dl (0.0-1.0)
[2020-06-29 22:18] LABS: BACTERIA TRACE; HYALINE CAST 16-20; RBC 0-2 rbc/hpf (0-2); WBC 0-2 wbc/hpf (0-5)
--- NOTE | 2020-06-29 22:38 | NUR ---
PT C/O HEADACHE REQUESTING TYLENOL, DR. HOFFMANN AWARE, PT ORDERED 975MG TYLENOL PO
--- NOTE | 2020-06-30 00:15 | NUR ---
PT STATES "MY HEAD FEELS A LITTLE BETTER" TYLENOL EFFECTIVE
[2020-06-30] MEDS ORDERED: BUTRANS1 EAC3 TD (01:33)
[2020-06-30] MEDS ORDERED: NITRO-DUR1 EAC3 TD (01:37)
[2020-06-30] MEDS ORDERED: ARICEPT5 M1 PO (01:39)
[2020-06-30] MEDS ORDERED: NORCO 7.5-3251 EACH PO (01:40)
[2020-06-30 03:46] VITALS: BP 128/64
--- NOTE | 2020-06-30 03:47 | NUR ---
PT RESTING IN BED WITH EYES CLOSED NO ACUTE DISTRESS NOTED DCALL LIGHT WITHIN REACH RN WILL CONTINUE TO MONITOR
[2020-06-30 04:00] VITALS: BP 151/56
--- NOTE | 2020-06-30 04:00 | NUR ---
A 80, admitted to 5E, under the services of Dr. FAITH SAL,DIMA Fuentes with a diagnosis of GENERALIZED WEAKNESS, HYPOKALEMIA. Chief complaint is WEAKNESS. Patient arrived via ambulance from ER. Monitor applied. Initial assessment completed. Vital signs taken and recorded. DR. FAITH SAL,DIMA Fuentes notified of admission to the unit. Orders received. See assessment for past medical history, medications and allergies. Patient and/or family oriented to unit. visitation policy reviewed. Clothing/patient valuable form completed. GELY CHAUDHARI
[2020-06-30 08:00] VITALS: BP 125/51
--- NOTE | 2020-06-30 08:32 | NUR ---
PHYSICAL THERAPY Screen received pt admitted with weakness and hypokalemia please consult PT if pt has a decline in functional statu below baseline thank you Rochelle Andrew PT
--- NOTE | 2020-06-30 11:46 | NUR ---
Met with pt this AM. Pt has dementia and provided limited information. Pt states that she lives with her son, lea, d-i-l's mother, and pt's grandchildren. Pt states that she uses a walker at home and that she currently does not have any services in the home but that she used to. This insurance writer has attempted 6x to reach pt's family by phone to discuss discharge needs. There appears to be a problem with the phone line. Will continue the attempt. Pt is known to this insurance writer from a previous [facility] admission in 01/07. Pt's son had moved pt from her apartment in [place] to his home and at that time, had hospice services. Upon [facility] discharge, pt was admitted to [facility] as pt's family felt that they were unable to provide the level of care that pt needed.
[2020-06-30 12:00] VITALS: BP 130/62
--- NOTE | 2020-06-30 13:35 | NUR ---
PHYSICAL THERAPY Physical Therapy evaluation completed on 5th floor with full evaluation to follow. Recommend physical therapy per plan of care and Home w Family 24 hr care/HH vs SNF pending progress upon discharge. Thank you for this referral. Rochelle Andrew PT
--- NOTE | 2020-06-30 13:36 | NUR ---
Occupational Therapy evaluation completed on five with full evaluation to follow. Recommend occupational therapy per plan of care and SNF vs home with HH and continued family supervision assist upon discharge. Thank you for this referral. Julissa Kinney OTR/L
[2020-06-30 16:00] VITALS: BP 135/64
[2020-06-30 20:00] VITALS: BP 111/46
[2020-07-01] VITALS: BP 128/49
[2020-07-01 08:00] VITALS: BP 130/42
[2020-07-01 09:19] LABS: CREATININE 1.18 mg/dL (0.55-1.02); POTASSIUM 2.8 mmol/L (3.5-5.1)
--- NOTE | 2020-07-01 09:48 | NUR ---
DR BRIZUELA CALLED AND NOTIFIED OF K OF 2.8. ORDERS RECEIVED.
--- NOTE | 2020-07-01 11:00 | NUR ---
PT ASSISTED VIA 2 ASSIST WITH WALKER TO RESTROOM, STEADY GAIT NOTED. CONTINENT OF BOWEL AND BLADDER AT THIS TIME. ASSISTED BACK INTO BED, CALL LIGHT WITHIN REACH.
[2020-07-01 12:00] VITALS: BP 132/46
[2020-07-01 16:00] VITALS: BP 114/44
--- NOTE | 2020-07-01 18:45 | NUR ---
PT REQUESTED AND WAS MEDICATED WITH NORCO FOR C/O HEADACHE AND NECK PAIN. CALL LIGHT IN REACH. WILL MONITOR
[2020-07-02 00:32] VITALS: BP 141/65
--- NOTE | 2020-07-02 04:43 | NUR ---
PT RESTING IN BED. RESPIRATIONS EASY AND UNLABORED ON ROOM AIR. NO S/S OF DISTRESS. SAFETY MEASURES IN PLACE. CALL LIGHT IN REACH.
[2020-07-02 07:11] LABS: CREATININE 1.2 mg/dL (0.55-1.02); POTASSIUM 3.6 mmol/L (3.5-5.1)
[2020-07-02] MEDS ORDERED: KLOR-CON M2020 ME1 PO (07:27)
[2020-07-02 08:00] VITALS: BP 120/50
--- NOTE | 2020-07-02 08:27 | NUR ---
PT RESTING IN BED. NO DISTRESS NOTED. WILL MONITOR
[2020-07-02 12:00] VITALS: BP 126/56
--- NOTE | 2020-07-02 15:00 | NUR ---
Discharge instructions reviewed with patient/family. Patient receptive and verbalizes understanding. Follow-up care arranged. Written instructions given to patient/family. OLI MEDRANO
--- NOTE | 2020-07-03 11:27 | NUR ---
Spoke with Yaquelin from [facility] who was requesting clinicals. Faxed all clinicals to [phone]
== END 2020-07-02 15:51 | disposition home or self-care (01) | DRG 641 ==
LOC: ED 17:00 → EDHOLD 19:24 → 5E 19:24
PROVIDERS: Emergency Medicine; Internal Medicine; ADMIT Internal Medicine; ATTEND Internal Medicine
DX: E87.6 Hypokalemia (principal); Z68.42 Body mass index [BMI] 45.0-49.9, adult; K51.90 Ulcerative colitis, unspecified, without complications; F33.9 Major depressive disorder, recurrent, unspecified; R62.7 Adult failure to thrive; E66.01 Morbid (severe) obesity due to excess calories; E78.2 Mixed hyperlipidemia; F02.80 Dementia in other diseases classified elsewhere, unspecified severity, without behavioral disturbance, psychotic disturbance, mood disturbance, and anxiety; G30.1 Alzheimer's disease with late onset; Z51.5 Encounter for palliative care; I25.10 Atherosclerotic heart disease of native coronary artery without angina pectoris; K21.9 Gastro-esophageal reflux disease without esophagitis; Z86.718 Personal history of other venous thrombosis and embolism; Z79.01 Long term (current) use of anticoagulants; N18.30 Chronic kidney disease, stage 3 unspecified

== ENCOUNTER 2020-10-30 07:40 | Inpatient (IN) | payer MEDICARE ==
[~2020-10-30] VITALS: Ht 152.4 cm; Wt 98.9 kg
[2020-10-30] VITALS (7 sets, daily range): BP systolic 107–126; BP diastolic 47–74
[~2020-10-30 07:40] MED LIST changes: +ARICEPT5 M1 PO; +BUTRANS1 EAC3 TD; +KLOR-CON M2020 ME1 PO; +NITRO-DUR1 EAC3 TD; +NORCO 7.5-3251 EACH PO
[2020-10-30 08:26] LABS: BASO % 0.8 % (0.0-1.0); EOS # 0.1 10*3/uL (0.0-0.4); EOS % 2.2 % (1.0-4.0); LYMPH # 1.2 10*3/uL (1.3-4.4); LYMPH % 33.3 % (27.0-41.0); MEAN CELL VOLUME 94.8 fl (81.0-99.0); MEAN CORPUSCULAR HGB CONC 32.8 g/dl (33.0-37.0); MEAN PLATELET VOLUME 13.1 fl (9.6-12.3); MONO # 0.3 10*3/uL (0.1-1.0); MONO % 7.9 % (3.0-9.0); NEUT % 55.5 % (47.0-73.0); PLATELET COUNT AUTOMATED 110 10*3/uL (130-400); RED BLOOD COUNT 4.22 10*6/uL (4.10-5.10); RED CELL DISTRI WIDTH 12.8 % (0-14.5); WHITE BLOOD COUNT 3.7 10*3/uL (4.8-10.8)
[2020-10-30 08:35] LABS: ACT PARTIAL THROMBO TIME 22.5 SECONDS (20.0-32.1); INTERNATIONAL NORM RATIO 1.1 (2.0-3.5)
[2020-10-30 08:45] LABS: ALBUMIN 3.6 gm/dl (3.1-4.5); ALKALINE PHOSPHATASE 89 U/L (45-117); BUN 18 mg/dl (7-24); CHLORIDE 109 mmol/L (98-107); CREATININE 1.32 mg/dL (0.55-1.02); LIPASE 117 U/L (73-393); POTASSIUM 3.4 mmol/L (3.5-5.1); SGOT/AST 17 IU/L (3-35); SGPT/ALT 21 U/L (12-78); SODIUM 141 mmol/L (136-145); TOTAL PROTEIN 6.7 gm/dL (6.4-8.2)
[2020-10-30 08:48] LABS: TROPONIN I < 0.015 ng/ml (<0.045)
[2020-10-30 09:04] LABS: BILIRUBIN Negative (Negative); BLOOD Negative (Negative); CLARITY Clear (Clear); COLOR Yellow (Yellow); GLUCOSE Negative (Negative); KETONE Trace (Negative); LEUKO ESTERASE Negative (Negative); NITRITE Negative (Negative)
[2020-10-30 09:14] LABS: EPITHELIAL CELLS 0-2; MUCOUS 1+; WBC 0-2 wbc/hpf (0-5)
[2020-10-31 00:56] VITALS: BP 102/72
[2020-10-31 08:00] VITALS: BP 142/78
[2020-10-31 12:00] VITALS: BP 121/80; BP 143/78
[2020-10-31 16:00] VITALS: BP 118/81
[2020-10-31 20:00] VITALS: BP 115/74
[2020-11-01] VITALS: BP 102/48
[2020-11-01 08:00] VITALS: BP 130/72
[2020-11-01 12:00] VITALS: BP 130/68
[2020-11-01 16:00] VITALS: BP 128/60
== END 2020-11-01 17:57 | disposition home health service (06) | DRG 563 ==
LOC: ED 07:40 → EDHOLD 11:31 → 5E 11:31
PROVIDERS: Emergency Medicine; ADMIT Internal Medicine; ATTEND Internal Medicine
PROC: 2W39X1Z Immobilization of Left Upper Extremity using Splint (ICD-10-PCS; principal; 2020-10-30)
PROC: 0HQ0XZZ Repair Scalp Skin, External Approach (ICD-10-PCS; 2020-10-30)
DX: S52.532A Colles' fracture of left radius, initial encounter for closed fracture (principal); F33.2 Major depressive disorder, recurrent severe without psychotic features; Z68.41 Body mass index [BMI] 40.0-44.9, adult; R62.7 Adult failure to thrive; I25.10 Atherosclerotic heart disease of native coronary artery without angina pectoris; W19.XXXA Unspecified fall, initial encounter; G30.9 Alzheimer's disease, unspecified; F02.80 Dementia in other diseases classified elsewhere, unspecified severity, without behavioral disturbance, psychotic disturbance, mood disturbance, and anxiety; M19.90 Unspecified osteoarthritis, unspecified site; G93.89 Other specified disorders of brain; Z51.5 Encounter for palliative care; S01.01XA Laceration without foreign body of scalp, initial encounter; E87.6 Hypokalemia; S52.612A Displaced fracture of left ulna styloid process, initial encounter for closed fracture; N18.32 Chronic kidney disease, stage 3b; Y93.89 Activity, other specified; Y92.098 Other place in other non-institutional residence as the place of occurrence of the external cause; Y99.8 Other external cause status; Z86.718 Personal history of other venous thrombosis and embolism; Z79.899 Other long term (current) drug therapy; N18.30 Chronic kidney disease, stage 3 unspecified

== ENCOUNTER → 2020-11-06 | Outpatient (CLI) | payer MEDICARE | END | disposition home or self-care (01) | LOC: ORTHO 13:44 | PROVIDERS: ATTEND Orthopaedic Surgery | DX: S52.532D Colles' fracture of left radius, subsequent encounter for closed fracture with routine healing (principal); X58.XXXD Exposure to other specified factors, subsequent encounter ==

== ENCOUNTER 2020-11-19 19:16 | Inpatient (IN) | payer MEDICARE ==
[~2020-11-19] VITALS: Ht 172.7 cm; Wt 97.7 kg
[2020-11-19 19:40] VITALS: BP 132/62
[2020-11-20] VITALS (13 sets, daily range): BP systolic 95–142; BP diastolic 46–85
[2020-11-20 00:33] LABS: BASO # 0.1 10*3/uL (0.0-0.1); BASO % 1.2 % (0.0-1.0); EOS % 0.9 % (1.0-4.0); HEMATOCRIT 37.6 % (37.0-47.0); LYMPH # 1.2 10*3/uL (1.3-4.4); LYMPH % 27.2 % (27.0-41.0); MEAN CELL VOLUME 93.3 fl (81.0-99.0); MEAN CORPUSCULAR HGB 31.8 pg (27.0-31.0); MEAN PLATELET VOLUME 13.1 fl (9.6-12.3); MONO # 0.6 10*3/uL (0.1-1.0); MONO % 14.7 % (3.0-9.0); NEUT # 2.4 10*3/uL (2.3-7.9); NEUT % 55.5 % (47.0-73.0); PLATELET COUNT AUTOMATED 129 10*3/uL (130-400); RED BLOOD COUNT 4.03 10*6/uL (4.10-5.10); RED CELL DISTRI WIDTH 13.2 % (0-14.5); WHITE BLOOD COUNT 4.2 10*3/uL (4.8-10.8)
[2020-11-20 00:42] LABS: INTERNATIONAL NORM RATIO 1.2 (2.0-3.5)
[2020-11-20 00:47] LABS: ALBUMIN 3.6 gm/dl (3.1-4.5); CREATININE 1.45 mg/dL (0.55-1.02); POTASSIUM 2.7 mmol/L (3.5-5.1); TOTAL PROTEIN 6.8 gm/dL (6.4-8.2)
[2020-11-20 00:48] LABS: TROPONIN I 0.016 ng/ml (<0.045)
[2020-11-21] VITALS: BP 125/59
[2020-11-21 06:44] LABS: BASO % 0.6 % (0.0-1.0); EOS # 0.1 10*3/uL (0.0-0.4); EOS % 2.3 % (1.0-4.0); HEMATOCRIT 33.7 % (37.0-47.0); LYMPH # 1.1 10*3/uL (1.3-4.4); LYMPH % 31.4 % (27.0-41.0); MEAN CELL VOLUME 94.4 fl (81.0-99.0); MEAN CORPUSCULAR HGB 31.1 pg (27.0-31.0); MEAN CORPUSCULAR HGB CONC 32.9 g/dl (33.0-37.0); MEAN PLATELET VOLUME 13.6 fl (9.6-12.3); MONO # 0.3 10*3/uL (0.1-1.0); MONO % 9.1 % (3.0-9.0); NEUT % 56.3 % (47.0-73.0); PLATELET COUNT AUTOMATED 107 10*3/uL (130-400); RED BLOOD COUNT 3.57 10*6/uL (4.10-5.10); RED CELL DISTRI WIDTH 13.3 % (0-14.5); WHITE BLOOD COUNT 3.5 10*3/uL (4.8-10.8)
[2020-11-21 07:00] LABS: BUN 10 mg/dl (7-24); CHLORIDE 113 mmol/L (98-107); CREATININE 0.95 mg/dL (0.55-1.02); POTASSIUM 2.9 mmol/L (3.5-5.1); SODIUM 142 mmol/L (136-145)
[2020-11-21 08:05] VITALS: BP 99/78
[2020-11-21 12:09] VITALS: BP 103/53
[2020-11-21 16:19] VITALS: BP 109/57
[2020-11-21 17:50] LABS: BILIRUBIN Negative (Negative); BLOOD Negative (Negative); CLARITY Cloudy (Clear); COLOR Yellow (Yellow); GLUCOSE Negative (Negative); KETONE Trace (Negative); LEUKO ESTERASE Negative (Negative); NITRITE Negative (Negative); PH 5.5 (4.5-8.0)
[2020-11-21 18:13] LABS: BACTERIA 1+; EPITHELIAL CELLS 21-30; FINE GRANULAR CAST 0-2; HYALINE CAST 0-2; MUCOUS 1+
[2020-11-21 20:00] VITALS: BP 119/45
[2020-11-22] VITALS: BP 110/45
[2020-11-22 08:00] VITALS: BP 109/54
[2020-11-22 12:00] VITALS: BP 90/60
[2020-11-22 16:00] VITALS: BP 117/52
[2020-11-22 20:00] VITALS: BP 99/62
[2020-11-23] VITALS: BP 120/64
[2020-11-23 06:51] LABS: BASO % 0.7 % (0.0-1.0); EOS # 0.1 10*3/uL (0.0-0.4); EOS % 2.8 % (1.0-4.0); HEMATOCRIT 36.6 % (37.0-47.0); LYMPH # 1.5 10*3/uL (1.3-4.4); LYMPH % 35.4 % (27.0-41.0); MEAN CELL VOLUME 97.3 fl (81.0-99.0); MEAN CORPUSCULAR HGB 31.4 pg (27.0-31.0); MEAN CORPUSCULAR HGB CONC 32.2 g/dl (33.0-37.0); MONO # 0.4 10*3/uL (0.1-1.0); MONO % 9.3 % (3.0-9.0); NEUT # 2.2 10*3/uL (2.3-7.9); NEUT % 51.6 % (47.0-73.0); PLATELET COUNT AUTOMATED 91 10*3/uL (130-400); RED BLOOD COUNT 3.76 10*6/uL (4.10-5.10); RED CELL DISTRI WIDTH 13.6 % (0-14.5); WHITE BLOOD COUNT 4.3 10*3/uL (4.8-10.8)
[2020-11-23 07:10] LABS: CHLORIDE 112 mmol/L (98-107); SODIUM 141 mmol/L (136-145)
[2020-11-23 07:24] LABS: BUN 11 mg/dl (7-24); CREATININE 0.92 mg/dL (0.55-1.02)
[2020-11-23 08:00] VITALS: BP 125/52
[2020-11-23 12:00] VITALS: BP 118/52
[2020-11-23 20:00] VITALS: BP 114/70
[2020-11-24] VITALS: BP 126/68
== END 2020-11-24 10:45 | DRG 391 ==
LOC: ED 19:16 → EDHOLD 11-20 06:59 → 5E 11-20 06:59
PROVIDERS: Emergency Medicine; ADMIT Internal Medicine; ATTEND Internal Medicine
DX: A08.4 Viral intestinal infection, unspecified (principal); N17.0 Acute kidney failure with tubular necrosis; F33.9 Major depressive disorder, recurrent, unspecified; Z68.41 Body mass index [BMI] 40.0-44.9, adult; R62.7 Adult failure to thrive; G40.909 Epilepsy, unspecified, not intractable, without status epilepticus; N18.31 Chronic kidney disease, stage 3a; M19.91 Primary osteoarthritis, unspecified site; Z20.822 Contact with and (suspected) exposure to COVID-19; E87.6 Hypokalemia; G30.9 Alzheimer's disease, unspecified; F02.80 Dementia in other diseases classified elsewhere, unspecified severity, without behavioral disturbance, psychotic disturbance, mood disturbance, and anxiety; I25.10 Atherosclerotic heart disease of native coronary artery without angina pectoris; M19.90 Unspecified osteoarthritis, unspecified site; G89.29 Other chronic pain; M54.5 Low back pain; L89.156 Pressure-induced deep tissue damage of sacral region; G93.89 Other specified disorders of brain; Z68.33 Body mass index [BMI] 33.0-33.9, adult; Z86.718 Personal history of other venous thrombosis and embolism

== ENCOUNTER 2021-05-19 16:36 | Emergency (ER) | payer MEDICARE ==
[~2021-05-19] VITALS: Ht 172.7 cm; Wt 111.1 kg
[2021-05-19 17:07] LABS: BASO # 0.1 10*3/uL (0.0-0.1); BASO % 0.9 % (0.0-1.0); EOS # 0.1 10*3/uL (0.0-0.4); EOS % 1.2 % (1.0-4.0); HEMATOCRIT 34.8 % (37.0-47.0); LYMPH # 0.8 10*3/uL (1.3-4.4); LYMPH % 10.9 % (27.0-41.0); MEAN CELL VOLUME 92.3 fl (81.0-99.0); MEAN CORPUSCULAR HGB 29.4 pg (27.0-31.0); MEAN CORPUSCULAR HGB CONC 31.9 g/dl (33.0-37.0); MEAN PLATELET VOLUME 11.6 fl (9.6-12.3); MONO # 0.7 10*3/uL (0.1-1.0); MONO % 8.7 % (3.0-9.0); NEUT # 5.8 10*3/uL (2.3-7.9); NEUT % 77.8 % (47.0-73.0); PLATELET COUNT AUTOMATED 156 10*3/uL (130-400); RED BLOOD COUNT 3.77 10*6/uL (4.10-5.10); RED CELL DISTRI WIDTH 13.2 % (0-14.5); WHITE BLOOD COUNT 7.4 10*3/uL (4.8-10.8)
[2021-05-19 17:21] LABS: ACT PARTIAL THROMBO TIME 26.4 SECONDS (20.0-32.1); CREATININE 1.56 mg/dL (0.55-1.02); INTERNATIONAL NORM RATIO 1.1 (2.0-3.5); POTASSIUM 3.7 mmol/L (3.5-5.1)
== END 2021-05-19 20:21 ==
LOC: ED 16:36
PROVIDERS: Emergency Medicine
DX: S09.90XA Unspecified injury of head, initial encounter (principal); I50.9 Heart failure, unspecified; Z79.899 Other long term (current) drug therapy; W07.XXXA Fall from chair, initial encounter; Y93.89 Activity, other specified; Y92.89 Other specified places as the place of occurrence of the external cause; Y99.8 Other external cause status

== ENCOUNTER 2022-02-04 10:05 | Inpatient (IN) | payer MEDICARE ==
[2022-02-04] VITALS (10 sets, daily range): BP systolic 81–219; BP diastolic 35–171
[~2022-02-04] VITALS: Ht 170.1 cm; Wt 111.7 kg
[2022-02-04 10:37] LABS: BASO # 0.1 10*3/uL (0.0-0.1); BASO % 0.9 % (0.0-1.0); EOS # 0.1 10*3/uL (0.0-0.4); EOS % 0.4 % (1.0-4.0); HEMATOCRIT 33.7 % (37.0-47.0); LYMPH # 1.3 10*3/uL (1.3-4.4); LYMPH % 9.4 % (27.0-41.0); MEAN CELL VOLUME 89.4 fl (81.0-99.0); MEAN CORPUSCULAR HGB 26.8 pg (27.0-31.0); MEAN PLATELET VOLUME 11.6 fl (9.6-12.3); MONO # 0.9 10*3/uL (0.1-1.0); NEUT # 11.7 10*3/uL (2.3-7.9); NEUT % 82.4 % (47.0-73.0); PLATELET COUNT AUTOMATED 479 10*3/uL (130-400); RED BLOOD COUNT 3.77 10*6/uL (4.10-5.10); RED CELL DISTRI WIDTH 17.8 % (0-14.5); WHITE BLOOD COUNT 14.2 10*3/uL (4.8-10.8)
[2022-02-04 10:44] LABS: ACT PARTIAL THROMBO TIME 27.3 SECONDS (20.0-32.1); INTERNATIONAL NORM RATIO 1.1 (2.0-3.5)
[2022-02-04 10:54] LABS: BUN 14 mg/dl (7-24); CHLORIDE 98 mmol/L (98-107); CREATININE 0.92 mg/dL (0.55-1.02); LIPASE 44 U/L (73-393); POTASSIUM 4.8 mmol/L (3.5-5.1); SGOT/AST 12 IU/L (3-35); SGPT/ALT 7 U/L (12-78); SODIUM 131 mmol/L (136-145); TOTAL PROTEIN 7.3 gm/dL (6.4-8.2)
[2022-02-04 11:13] LABS: ALKALINE PHOSPHATASE 102 U/L (45-117)
[2022-02-05 02:17] VITALS: BP 116/70
[2022-02-05 04:21] VITALS: BP 120/64
[2022-02-05 05:04] LABS: BUN 14 mg/dl (7-24); CHLORIDE 104 mmol/L (98-107); CREATININE 0.67 mg/dL (0.55-1.02); POTASSIUM 4.4 mmol/L (3.5-5.1); SODIUM 137 mmol/L (136-145)
[2022-02-05] MEDS ORDERED: KEPPRA1000 MG PO (07:30)
[2022-02-05 08:15] LABS: BASO # 0.1 10*3/uL (0.0-0.1); BASO % 0.5 % (0.0-1.0); EOS % 0.1 % (1.0-4.0); HEMATOCRIT 28.2 % (37.0-47.0); LYMPH % 8.2 % (27.0-41.0); MEAN CORPUSCULAR HGB 27.7 pg (27.0-31.0); MEAN CORPUSCULAR HGB CONC 30.5 g/dl (33.0-37.0); MEAN PLATELET VOLUME 11.6 fl (9.6-12.3); MONO # 0.7 10*3/uL (0.1-1.0); MONO % 6.2 % (3.0-9.0); NEUT # 9.9 10*3/uL (2.3-7.9); NEUT % 84.4 % (47.0-73.0); RED CELL DISTRI WIDTH 17.7 % (0-14.5); WHITE BLOOD COUNT 11.8 10*3/uL (4.8-10.8)
[2022-02-05 08:16] LABS: PLATELET COUNT AUTOMATED 319 10*3/uL (130-400)
[2022-02-05 08:30] VITALS: BP 118/68
== END 2022-02-05 10:11 | DRG 101 ==
LOC: ED → EDHOLD 14:46
PROVIDERS: Emergency Medicine; ADMIT Internal Medicine; ATTEND Internal Medicine
DX: G40.909 Epilepsy, unspecified, not intractable, without status epilepticus (principal); F33.0 Major depressive disorder, recurrent, mild; M19.90 Unspecified osteoarthritis, unspecified site; G89.29 Other chronic pain; Z86.718 Personal history of other venous thrombosis and embolism